=== PATIENT | male | born 1935 | race Caucasian/White ===

== ENCOUNTER 2016-07-18 17:14 | Inpatient (IN) ==
[2016-07-18] MEDS ORDERED: *HR* Morphine 2 MG/ML SYRINGE IVP ONE (17:18)
--- NOTE | 2016-07-18 17:47 | Emergency Department Note ---
Disposition Clinical Impression: Elevated troponin Fall Qualifiers: Encounter type: initial encounter Qualified Code(s): W19.XXXA - Unspecified fall, initial encounter Altered mental status Qualifiers: Altered mental status type: unspecified Qualified Code(s): R41.82 - Altered mental status, unspecified Disposition: Admitted As Inpatient Condition: Fair Referrals: James Velásquez DO [Primary Care Provider] - Forms: ED Satisfaction Letter General Adult HPI - General Chief complaint: ED Altered Mental Status Stated complaint: AMS Time Seen by Provider: 07/18/16 17:17 Source: family, EMS Limitations: altered mental status Nursing Notes Reviewed: Yes Vital Signs Reviewed: Yes - History of Present Illness HPI Narrative: Mr. Schmidt, an 80-year-old male, presents from home via EMS. Per his , he has fallen twice today. He has a history of brain cancer which has been operated on twice. It is returned and is now inoperable in no chemotherapy is being performed. He was sent home for comfort. Previously followed by the [facility], now followed by [facility], . Patient's is concerned that he may have a fracture. Patient arrives somewhat combative and uncooperative. Per his and daughters at bedside, this is not his baseline but rather an acute manager exchange the last several days. Patient currently anticoagulated on the role to and aspirin. Current pain medications include Percocet 5/325 every 6 hours, Eure 5/325 every 6 hours. PMH: Brain cancer, hypertension, hyperlipidemia, gout, dizziness. Oncologist: Dr. Montes PCP: Dr. Velásquez Patient is currently full code. Pain Scale: 6 - Related Data Allergies Allergy/AdvReac Type Severity Reaction Status Date / Time meloxicam Allergy See Verified 05/28/16 10:05 Comments Limitations: ROS unobtainable due to patients medical condition Past Medical History - Past Medical History Medical history: Reports: cancer, COPD, hypertension, pulmonary embolus Psychiatric history: Reports: no psych history - Social History Smoking Status: Never smoker Smokeless Tobacco Status: No Alcohol use: Reports: none Drug use: Reports: none Physical Exam General: Patient is in no acute distress. He initially would answer direct questions but then simply stopped speaking. He is uncooperative in that he will not do so much as even open his eyes. HEENT: No facial asymmetry. Head is normocephali. Superficial abrasion of the middle patient's forehead. PERRLA. Unable to perform extraocular motion secondary to lack of cooperation. Trachea midline. Oral mucosa dry. Cardiovascular: Heart regular rate and rhythm without clicks, rubs, gallops, or murmurs. No JVD. PMI nondisplaced. No pedal edema. Bilateral radial and posterior tibial pulses 2+. Respiratory: Symmetric chest rise with poor respiratory effort. Bilateral breath sounds are clear without crackles or rhonchi. Scant wheezing throughout. Abdomen: Bowel sounds present normoactive x-4 quadrants. Abdomen is soft, nondistended, without guarding, and nontender. Unable to assess for organomegaly as patient prefers to lie on his side instead of supine. Musculoskeletal: Unable to assess muscle strength secondary to patient cooperation however he does move all extremities. He prefers to lie in the right lateral decubitus position. No tenderness to palpation the patient's head , maxillofacial structures, C-spine, T-spine, L-spine, sacrum, clavicles, shoulder, humerus, elbow, forearms, wrists, hands, elbows, hips, greater trochanters, femur, knees, tibia or fibula, ankle, or feet. No tenderness to palpation or rocking of the patient's ribs. Neuro: Unable to properly assess cranial nerve function. Patient does squint his eyes and refuses to open them. Patient localizes in response to pain. Psych: Patient's affect is not appropriate for situation. - General Limitations: altered mental status General appearance: alert Course Course Narrative: I spoke with Dr. Gibbs regarding the patient's code status and nearing hospice care. If the patient is admitted, he will see the patient in the floor. The patient is discharged home, he recommends referral to do hospice were both CODE STATUS and hospice care can be discussed with the patient and his in a comfortable home. After full examination, patient did not elicit any tenderness headed to to palpation of any joint or bone including ribs and complete spine. Patient's expressed concern over a fracture requesting x-rays. We discussed my lack of clinical findings to guide imaging. She expressed concern over hairline fractures. I again expressed my findings on clinical exam which were joyner negative eliciting tenderness to palpation. Because the patient has an abrasion on his forehead, the was concerned about intracerebral bleed and expressed strong desire to have imaging of the patient's head. Because the patient is full code, I will perform a complete altered mentation workup. CT unremarkable for acute intracerebral hemorrhage. Chest x-ray unremarkable. CT spine unremarkable. Head CT 07/18/16 17:43 IMPRESSION: 29 mm area of ill defined low-attenuation in the inferior left frontal lobe. Considerations include nonhemorrhagic contusion, ischemia or underlying mass. Encephalomalacia in the left temporal lobe secondary to previous surgery and/or treatment. RECOMMENDATIONS: MRI is recommended for further characterization D/ / Yong Irizarry MD / Yong Irizarry MD Interpreting Provider: Yong Irizarry MD Cervical Spine CT 07/18/16 17:47 IMPRESSION: No acute abnormality of the cervical spine. Multilevel degenerative disc disease most pronounced at C4-5. D/ / Yong Irizarry MD / Yong Irizarry MD Interpreting Provider: Yong Irizrary MD Chest X-Ray 07/18/16 17:49 IMPRESSION: No acute process. D/ / Stevan Panda MD / Stevan Panda MD Interpreting Provider: Stevan Panda MD 20:11 patient's serum studies have not been drawn. Will follow-up. Patient's lab work overall is unremarkable. No evidence of UTI or leukocytosis. No Leksell abnormalities. Normal renal function. No toxicities other than urine positive for opioids which is a prescription medication. However, he does have mild elevation in troponin of 0.05. No EKG changes. We will admit the patient with a diagnosis of elevated troponin as well as frequent falls and altered mentation. Additionally, the patient's requests discussion with palliative care for hospice. I relayed all these findings the patient's and family at bedside. They have no additional questions or concerns at this time. On patient's monitor, he was alarming as being athletic. I was bedside during several of these alarms indirectly observed the patient breathing. His pulse ox dipped to 90% during this time. He does not have a history of obstructive sleep apnea. He does not require supplemental oxygen use at home. As a precaution, I placed a nasal cannula at 2 L/min. Vital Signs Temperature 97.5 F L 07/18/16 17:15 Pulse Rate 68 07/18/16 17:15 Respiratory Rate 16 07/18/16 17:15 Blood Pressure 144/90 07/18/16 17:15 O2 Sat by Pulse Oximetry 94 L 07/18/16 17:15 Temperature 97.8 F 07/18/16 20:00 Pulse Rate 60 07/18/16 21:37 Respiratory Rate 18 07/18/16 21:37 Blood Pressure 118/83 07/18/16 21:37 O2 Sat by Pulse Oximetry 96 07/18/16 21:37 Oxygen Delivery Oxygen Delivery Room Air Medical Decision Making - Medical Records Medical records reviewed: Yes I reviewed the patient's medical records. - Lab Data Lab results reviewed: Yes I reviewed the patient's lab results. Result diagrams: 07/18/16 20:44 07/18/16 20:44 Lab Results 07/18/16 07/18/16 07/18/16 Range/Units 17:24 18:52 18:55 WBC (4.3-11.1) K/mcL RBC (4.19-5.50) M/mcL Hgb (12.9-16.9) g/dL Hct (37.5-50.1) % MCV (83.0-100.0) fL MCH (28.0-33.3) pg MCHC (31.6-35.5) g/dL RDW (11.5-14.5) % Plt Count (140-400) K/mcL MPV (9.4-12.4) fL Immature Gran % (0-4) % Seg Neutrophils % % Lymphocytes % % Monocytes % % Eosinophils % % Basophils % % Neutrophils # (1.6-8.9) K/mcL Lymphocytes # (0.6-4.6) K/mcL Monocytes # (0.0-1.3) K/mcL Eosinophils # (0.0-0.6) K/mcL Basophils # (0.0-0.2) K/mcL PT (9.4-12.1) Seconds INR APTT (26.0-36.0) Seconds Sodium (136-145) mEq/L Potassium (3.5-4.5) mEq/L Chloride (98-109) mEq/L Carbon Dioxide (19-29) mEq/L BUN (8-26) mg/dL Creatinine (0.72-1.25) mg/dL Est GFR ( Amer) (> 60) Est GFR (Non-Af Amer) (> 60) BUN/Creatinine Ratio (6-26) Glucose (70-99) mg/dL POC Glucose 93 H (58-89) Calculated Osmolality (280-300) Calcium (8.6-10.8) mg/dL Total Bilirubin (0.2-1.2) mg/dL Direct Bilirubin (0.0-0.5) mg/dL Indirect Bilirubin (0.0-1.2) mg/dL AST (5-34) Units/L ALT (0-55) Units/L Alkaline Phosphatase (38-126) Units/L Troponin I (0-0.03) ng/mL Serum Total Protein (6.0-8.3) g/dL Albumin (3.5-5.0) g/dL Globulin (2.4-3.5) g/dL Albumin/Globulin Ratio (1.1-2.2) Urine Color Yellow (Yellow) Urine Clarity Cloudy A (Clear) Urine pH 7.5 (5.0-8.0) pH Units Ur Specific [place] 1.018 (1.010-1.025) Urine Protein 30 H (Neg-Trace) mg/dL Urine Glucose (UA) Normal (Normal) mg/dL Urine Ketones Negative (Negative) mg/dL Urine Blood Moderate H (Negative) Urine Nitrite Negative (Negative) Urine Bilirubin Negative (Negative) Urine Urobilinogen Normal (Normal) mg/dL Ur Leukocyte Esterase Negative (Negative) Urine Microscopic RBC 30-50 H (0-3) per hpf Urine Microscopic WBC 3-5 H (0-3) per hpf Ur Squamous Epith Cells Many H (None-Few) per lpf Ur Renal Epithelial Cell Moderate H (None-Few) per hpf Urine Bacteria None Seen (None-Few) per hpf Hyaline Casts None Seen (None-Few) per lpf Ur Culture Indicated? NO (NO) Urine Opiates Screen Positive H (Wicvev=632) ng/mL Ur Barbiturates Screen Negative (Owqyof=451) ng/mL Ur Phencyclidine Scrn Negative (Cutoff=25) ng/mL Ur Amphetamines Screen Negative (Bqusst=2311) ng/mL U Benzodiazepines Scrn Negative (Uykllr=436) ng/mL Urine Cocaine Screen Negative (Cutoff= 300) ng/mL U Marijuana (THC) Screen Negative (Cutoff = 50) ng/mL Ethyl Alcohol (0-10) mg/dL 07/18/16 07/18/16 07/18/16 Range/Units 20:44 20:44 20:44 WBC 13.8 H (4.3-11.1) K/mcL RBC 4.95 (4.19-5.50) M/mcL Hgb 15.6 (12.9-16.9) g/dL Hct 45.6 (37.5-50.1) % MCV 92.1 (83.0-100.0) fL MCH 31.5 (28.0-33.3) pg MCHC 34.2 (31.6-35.5) g/dL RDW 13.6 (11.5-14.5) % Plt Count 150 (140-400) K/mcL MPV 10.1 (9.4-12.4) fL Immature Gran % 4.5 H (0-4) % Seg Neutrophils % 84.7 % Lymphocytes % 7.2 % Monocytes % 3.0 % Eosinophils % 0.1 % Basophils % 0.5 % Neutrophils # 11.7 H (1.6-8.9) K/mcL Lymphocytes # 1.0 (0.6-4.6) K/mcL Monocytes # 0.4 (0.0-1.3) K/mcL Eosinophils # 0.0 (0.0-0.6) K/mcL Basophils # 0.1 (0.0-0.2) K/mcL PT 14.6 H (9.4-12.1) Seconds INR 1.3 APTT 33.8 (26.0-36.0) Seconds Sodium 133 L (136-145) mEq/L Potassium 5.1 H (3.5-4.5) mEq/L Chloride 101 (98-109) mEq/L Carbon Dioxide 22 (19-29) mEq/L BUN 25 (8-26) mg/dL Creatinine 0.82 (0.72-1.25) mg/dL Est GFR ( Amer) > 60 (> 60) Est GFR (Non-Af Amer) > 60 (> 60) BUN/Creatinine Ratio 30 H (6-26) Glucose 97 (70-99) mg/dL POC Glucose (58-89) Calculated Osmolality 280 (280-300) Calcium 8.5 L (8.6-10.8) mg/dL Total Bilirubin (0.2-1.2) mg/dL Direct Bilirubin (0.0-0.5) mg/dL Indirect Bilirubin (0.0-1.2) mg/dL AST (5-34) Units/L ALT (0-55) Units/L Alkaline Phosphatase (38-126) Units/L Troponin I (0-0.03) ng/mL Serum Total Protein (6.0-8.3) g/dL Albumin (3.5-5.0) g/dL Globulin (2.4-3.5) g/dL Albumin/Globulin Ratio (1.1-2.2) Urine Color (Yellow) Urine Clarity (Clear) Urine pH (5.0-8.0) pH Units Ur Specific [place] (1.010-1.025) Urine Protein (Neg-Trace) mg/dL Urine Glucose (UA) (Normal) mg/dL Urine Ketones (Negative) mg/dL Urine Blood (Negative) Urine Nitrite (Negative) Urine Bilirubin (Negative) Urine Urobilinogen (Normal) mg/dL Ur Leukocyte Esterase (Negative) Urine Microscopic RBC (0-3) per hpf Urine Microscopic WBC (0-3) per hpf Ur Squamous Epith Cells (None-Few) per lpf Ur Renal Epithelial Cell (None-Few) per hpf Urine Bacteria (None-Few) per hpf Hyaline Casts (None-Few) per lpf Ur Culture Indicated? (NO) Urine Opiates Screen (Lccdqo=570) ng/mL Ur Barbiturates Screen (Binocf=305) ng/mL Ur Phencyclidine Scrn (Cutoff=25) ng/mL Ur Amphetamines Screen (Yydftq=4469) ng/mL U Benzodiazepines Scrn (Lcydsl=522) ng/mL Urine Cocaine Screen (Cutoff= 300) ng/mL U Marijuana (THC) Screen (Cutoff = 50) ng/mL Ethyl Alcohol (0-10) mg/dL 07/18/16 07/18/16 Range/Units 20:44 20:44 WBC (4.3-11.1) K/mcL RBC (4.19-5.50) M/mcL Hgb (12.9-16.9) g/dL Hct (37.5-50.1) % MCV (83.0-100.0) fL MCH (28.0-33.3) pg MCHC (31.6-35.5) g/dL RDW (11.5-14.5) % Plt Count (140-400) K/mcL MPV (9.4-12.4) fL Immature Gran % (0-4) % Seg Neutrophils % % Lymphocytes % % Monocytes % % Eosinophils % % Basophils % % Neutrophils # (1.6-8.9) K/mcL Lymphocytes # (0.6-4.6) K/mcL Monocytes # (0.0-1.3) K/mcL Eosinophils # (0.0-0.6) K/mcL Basophils # (0.0-0.2) K/mcL PT (9.4-12.1) Seconds INR APTT (26.0-36.0) Seconds Sodium (136-145) mEq/L Potassium (3.5-4.5) mEq/L Chloride (98-109) mEq/L Carbon Dioxide (19-29) mEq/L BUN (8-26) mg/dL Creatinine (0.72-1.25) mg/dL Est GFR ( Amer) (> 60) Est GFR (Non-Af Amer) (> 60) BUN/Creatinine Ratio (6-26) Glucose (70-99) mg/dL POC Glucose (58-89) Calculated Osmolality (280-300) Calcium (8.6-10.8) mg/dL Total Bilirubin 1.7 H (0.2-1.2) mg/dL Direct Bilirubin 0.5 (0.0-0.5) mg/dL Indirect Bilirubin 1.2 (0.0-1.2) mg/dL AST 26 (5-34) Units/L ALT 31 (0-55) Units/L Alkaline Phosphatase 57 (38-126) Units/L Troponin I 0.05 H* (0-0.03) ng/mL Serum Total Protein 6.2 (6.0-8.3) g/dL Albumin 3.1 L (3.5-5.0) g/dL Globulin 3.1 (2.4-3.5) g/dL Albumin/Globulin Ratio 1.0 L (1.1-2.2) Urine Color (Yellow) Urine Clarity (Clear) Urine pH (5.0-8.0) pH Units Ur Specific [place] (1.010-1.025) Urine Protein (Neg-Trace) mg/dL Urine Glucose (UA) (Normal) mg/dL Urine Ketones (Negative) mg/dL Urine Blood (Negative) Urine Nitrite (Negative) Urine Bilirubin (Negative) Urine Urobilinogen (Normal) mg/dL Ur Leukocyte Esterase (Negative) Urine Microscopic RBC (0-3) per hpf Urine Microscopic WBC (0-3) per hpf Ur Squamous Epith Cells (None-Few) per lpf Ur Renal Epithelial Cell (None-Few) per hpf Urine Bacteria (None-Few) per hpf Hyaline Casts (None-Few) per lpf Ur Culture Indicated? (NO) Urine Opiates Screen (Jewbgx=885) ng/mL Ur Barbiturates Screen (Yrsyco=188) ng/mL Ur Phencyclidine Scrn (Cutoff=25) ng/mL Ur Amphetamines Screen (Nythum=0238) ng/mL U Benzodiazepines Scrn (Nxppdo=880) ng/mL Urine Cocaine Screen (Cutoff= 300) ng/mL U Marijuana (THC) Screen (Cutoff = 50) ng/mL Ethyl Alcohol < 10 (0-10) mg/dL - Radiology Data Radiology results reviewed: Yes I reviewed the patient's radiology results. - EKG Data EKG #1 EKG attestation: Yes I reviewed and interpreted this EKG. EKG results narrative: EKG dated July at 19:32) sinus bradycardia with a rate of 59. Normal intervals with OH 177, QRS 95, QT/QTc 453/452. Normal axis. Nonspecific ST-T changes. Compared to previous dated 06/29 also read as sinus bradycardia; no acute ischemic changes of comparison.
[2016-07-18] MEDS ORDERED: *HR* LORazepam 2 MG/ML VIAL IVP ONE (18:17)
[2016-07-18 19:01] LABS: Bilirubin,Urine Negative (Negative); Blood,Urine Moderate (Negative); Clarity,Urine Cloudy (Clear); Color,Urine Yellow (Yellow); Glucose,Urine (UA) Normal (Normal); Ketones,Urine Negative (Negative); Leukocyte Esterase,Urine Negative (Negative); Nitrite,Urine Negative (Negative); PH,Urine 7.5 pH Units (5.0-8.0); Protein,Urine 30 mg/dL (Neg-Trace); Specific Gravity,Urine 1.018 (1.010-1.025); Urobilinogen,Urine Normal (Normal)
[2016-07-18 19:02] LABS: Bacteria,Urine None Seen per hpf (None-Few); Hyaline Casts,Urine None Seen per lpf (None-Few); RBC,Urine 30-50 per hpf (0-3); Squamous Epithelial Cell,Urine Many per lpf (None-Few)
[2016-07-18 19:05] LABS: Amphetamine Screen,Urine Negative ng/mL (Cutoff=1000); Barbiturate Screen,Urine Negative ng/mL (Cutoff=200); Benzodiazepines Screen,Urine Negative ng/mL (Cutoff=200); Cannabinoid Screen,Urine Negative ng/mL (Cutoff = 50); Cocaine Screen,Urine Negative ng/mL (Cutoff= 300); Opiate Screen,Urine Positive ng/mL (Cutoff=300); Phencyclidine Screen,Urine Negative ng/mL (Cutoff=25)
[2016-07-18 19:14] LABS: Renal Epithelial Cells,Urine Moderate per hpf (None-Few)
[2016-07-18 20:51] LABS: Basophils # 0.1 K/mcL (0.0-0.2); Basophils % 0.5 %; Eosinophils % 0.1 %; Hematocrit 45.6 % (37.5-50.1); Hemoglobin 15.6 g/dL (12.9-16.9); Immature Granulocytes % 4.5 % (0-4); Lymphocytes % 7.2 %; Mean Corpuscular HGB Conc 34.2 g/dL (31.6-35.5); Mean Corpuscular Hemoglobin 31.5 pg (28.0-33.3); Mean Corpuscular Volume 92.1 fL (83.0-100.0); Mean Platelet Volume 10.1 fL (9.4-12.4); Monocytes # 0.4 K/mcL (0.0-1.3); Neutrophils # 11.7 K/mcL (1.6-8.9); Platelet Count 150 K/mcL (140-400); Red Blood Count 4.95 M/mcL (4.19-5.50); Red Cell Distribution Width 13.6 % (11.5-14.5); Segmented Neutrophils % 84.7 %
[2016-07-18 20:55] LABS: INR 1.3; Prothrombin Time 14.6 Seconds (9.4-12.1)
[2016-07-18 20:58] LABS: Activated Partial Thrombo Time 33.8 Seconds (26.0-36.0)
[2016-07-18 21:05] LABS: BUN/Creatinine Ratio 30 (6-26); Blood Urea Nitrogen 25 mg/dL (8-26); Calcium 8.5 mg/dL (8.6-10.8); Carbon Dioxide 22 mEq/L (19-29); Chloride 101 mEq/L (98-109); Glucose 97 mg/dL (70-99); Osmolality,Calculated 280 (280-300); Potassium 5.1 mEq/L (3.5-4.5); Sodium 133 mEq/L (136-145); eGFR For African Americans > 60 (> 60); eGFR For Non-African Americans > 60 (> 60)
[2016-07-18 21:06] LABS: Alanine Aminotransferase 31 Units/L (0-55); Albumin 3.1 g/dL (3.5-5.0); Alkaline Phosphatase 57 Units/L (38-126); Aspartate Amino Transferase 26 Units/L (5-34); Bilirubin,Direct 0.5 mg/dL (0.0-0.5); Bilirubin,Indirect 1.2 mg/dL (0.0-1.2); Bilirubin,Total 1.7 mg/dL (0.2-1.2); Globulin 3.1 g/dL (2.4-3.5); Total Protein 6.2 g/dL (6.0-8.3)
[2016-07-18 21:07] LABS: Ethanol < 10 mg/dL (0-10)
--- NOTE | 2016-07-18 21:57 | Emergency Department Note ---
Disposition Clinical Impression: Elevated troponin, Fall, Altered mental status Disposition: Admitted As Inpatient Condition: Fair Referrals: James Velásquez DO [Primary Care Provider] - Forms: ED Satisfaction Letter General Adult HPI - General Chief complaint: ED Altered Mental Status Stated complaint: AMS Time Seen by Provider: 07/18/16 17:17 Source: family, EMS Limitations: altered mental status - History of Present Illness Pain Scale: 6 - Related Data Home Medications Medication Instructions Recorded Confirmed Allopurinol [Zyloprim 100 MG] 100 mg PO BID 07/18/16 07/18/16 Amlodipine [Norvasc] 2.5 mg PO DAILY 07/18/16 07/18/16 Ascorbate Calcium [Vitamin C] 500 mg PO DAILY 07/18/16 07/18/16 Aspirin [Lo-Dose Aspirin EC] 81 mg PO DAILY 07/18/16 07/18/16 Calcium Carbonate/Vitamin D3 1 each PO DAILY 07/18/16 07/18/16 [Calcium 600-Vit D3 200 Tablet] Isosorbide MONOnitrate (24 HR) 60 mg PO DAILY 07/18/16 07/18/16 [Imdur] Lisinopril [Zestril] 10 mg PO DAILY 07/18/16 07/18/16 Meclizine HCl [Bonine] 25 mg PO PRN PRN 07/18/16 07/18/16 Metoprolol XL (24 HR) Succ [Toprol 25 mg PO DAILY 07/18/16 07/18/16 XL] Nitroglycerin [Nitrostat] 0.4 mg SL PRN PRN 07/18/16 07/18/16 OxyCODONE/APAP 5/325 [Percocet 1 each PO Q6HR PRN 07/18/16 07/18/16 5/325 MG] Ranolazine [Ranexa] 1,000 mg PO DAILY 07/18/16 07/18/16 Simvastatin [Zocor] 20 mg PO HS 07/18/16 07/18/16 Xarelto 07/18/16 Allergies Allergy/AdvReac Type Severity Reaction Status Date / Time meloxicam Allergy See Verified 05/28/16 10:05 Comments Past Medical History - Past Medical History Medical history: Reports: cancer, COPD, hypertension, pulmonary embolus Psychiatric history: Reports: no psych history - Social History Smoking Status: Never smoker Smokeless Tobacco Status: No Alcohol use: Reports: none Drug use: Reports: none Physical Exam - General Limitations: altered mental status General appearance: alert Course - Reevaluation(s) Reevaluation #1: I saw the patient with the resident, Dr. Sotelo. Patient was brought in with falls at home and altered mental status. He is a brain cancer patients and is currently not getting any treatment yet the family wants him to be full code. Evaluation is limited by the patient's altered mental status. CAT scan of the brain showed the old brain lesions but no acute bleeds. Lab abnormalities revealed an elevated troponin. The main reason this patient really needs to be admitted to the hospital is that it does not seem like families capable of caring for him at home. We need to admit the patient so that he can be evaluated for group home placement or hospice care in conjunction with the family. Patient was accepted for admission by the hospitalist. Time: 21:56 Vital Signs Temperature 97.5 F L 07/18/16 17:15 Pulse Rate 68 07/18/16 17:15 Respiratory Rate 16 07/18/16 17:15 Blood Pressure 144/90 07/18/16 17:15 O2 Sat by Pulse Oximetry 94 L 07/18/16 17:15 Temperature 97.8 F 07/18/16 20:00 Pulse Rate 60 07/18/16 21:37 Respiratory Rate 18 07/18/16 21:37 Blood Pressure 118/83 07/18/16 21:37 O2 Sat by Pulse Oximetry 96 07/18/16 21:37 Oxygen Delivery Oxygen Delivery Room Air Medical Decision Making - Lab Data Result diagrams: 07/18/16 20:44 07/18/16 20:44 Lab Results 07/18/16 07/18/16 07/18/16 Range/Units 17:24 18:52 18:55 WBC (4.3-11.1) K/mcL RBC (4.19-5.50) M/mcL Hgb (12.9-16.9) g/dL Hct (37.5-50.1) % MCV (83.0-100.0) fL MCH (28.0-33.3) pg MCHC (31.6-35.5) g/dL RDW (11.5-14.5) % Plt Count (140-400) K/mcL MPV (9.4-12.4) fL Immature Gran % (0-4) % Seg Neutrophils % % Lymphocytes % % Monocytes % % Eosinophils % % Basophils % % Neutrophils # (1.6-8.9) K/mcL Lymphocytes # (0.6-4.6) K/mcL Monocytes # (0.0-1.3) K/mcL Eosinophils # (0.0-0.6) K/mcL Basophils # (0.0-0.2) K/mcL PT (9.4-12.1) Seconds INR APTT (26.0-36.0) Seconds Sodium (136-145) mEq/L Potassium (3.5-4.5) mEq/L Chloride (98-109) mEq/L Carbon Dioxide (19-29) mEq/L BUN (8-26) mg/dL Creatinine (0.72-1.25) mg/dL Est GFR ( Amer) (> 60) Est GFR (Non-Af Amer) (> 60) BUN/Creatinine Ratio (6-26) Glucose (70-99) mg/dL POC Glucose 93 H (58-89) Calculated Osmolality (280-300) Calcium (8.6-10.8) mg/dL Total Bilirubin (0.2-1.2) mg/dL Direct Bilirubin (0.0-0.5) mg/dL Indirect Bilirubin (0.0-1.2) mg/dL AST (5-34) Units/L ALT (0-55) Units/L Alkaline Phosphatase (38-126) Units/L Troponin I (0-0.03) ng/mL Serum Total Protein (6.0-8.3) g/dL Albumin (3.5-5.0) g/dL Globulin (2.4-3.5) g/dL Albumin/Globulin Ratio (1.1-2.2) Urine Color Yellow (Yellow) Urine Clarity Cloudy A (Clear) Urine pH 7.5 (5.0-8.0) pH Units Ur Specific [place] 1.018 (1.010-1.025) Urine Protein 30 H (Neg-Trace) mg/dL Urine Glucose (UA) Normal (Normal) mg/dL Urine Ketones Negative (Negative) mg/dL Urine Blood Moderate H (Negative) Urine Nitrite Negative (Negative) Urine Bilirubin Negative (Negative) Urine Urobilinogen Normal (Normal) mg/dL Ur Leukocyte Esterase Negative (Negative) Urine Microscopic RBC 30-50 H (0-3) per hpf Urine Microscopic WBC 3-5 H (0-3) per hpf Ur Squamous Epith Cells Many H (None-Few) per lpf Ur Renal Epithelial Cell Moderate H (None-Few) per hpf Urine Bacteria None Seen (None-Few) per hpf Hyaline Casts None Seen (None-Few) per lpf Ur Culture Indicated? NO (NO) Urine Opiates Screen Positive H (Ghboin=793) ng/mL Ur Barbiturates Screen Negative (Jjljbg=074) ng/mL Ur Phencyclidine Scrn Negative (Cutoff=25) ng/mL Ur Amphetamines Screen Negative (Ontcnv=4510) ng/mL U Benzodiazepines Scrn Negative (Zrdpzz=659) ng/mL Urine Cocaine Screen Negative (Cutoff= 300) ng/mL U Marijuana (THC) Screen Negative (Cutoff = 50) ng/mL Ethyl Alcohol (0-10) mg/dL 07/18/16 07/18/16 07/18/16 Range/Units 20:44 20:44 20:44 WBC 13.8 H (4.3-11.1) K/mcL RBC 4.95 (4.19-5.50) M/mcL Hgb 15.6 (12.9-16.9) g/dL Hct 45.6 (37.5-50.1) % MCV 92.1 (83.0-100.0) fL MCH 31.5 (28.0-33.3) pg MCHC 34.2 (31.6-35.5) g/dL RDW 13.6 (11.5-14.5) % Plt Count 150 (140-400) K/mcL MPV 10.1 (9.4-12.4) fL Immature Gran % 4.5 H (0-4) % Seg Neutrophils % 84.7 % Lymphocytes % 7.2 % Monocytes % 3.0 % Eosinophils % 0.1 % Basophils % 0.5 % Neutrophils # 11.7 H (1.6-8.9) K/mcL Lymphocytes # 1.0 (0.6-4.6) K/mcL Monocytes # 0.4 (0.0-1.3) K/mcL Eosinophils # 0.0 (0.0-0.6) K/mcL Basophils # 0.1 (0.0-0.2) K/mcL PT 14.6 H (9.4-12.1) Seconds INR 1.3 APTT 33.8 (26.0-36.0) Seconds Sodium 133 L (136-145) mEq/L Potassium 5.1 H (3.5-4.5) mEq/L Chloride 101 (98-109) mEq/L Carbon Dioxide 22 (19-29) mEq/L BUN 25 (8-26) mg/dL Creatinine 0.82 (0.72-1.25) mg/dL Est GFR ( Amer) > 60 (> 60) Est GFR (Non-Af Amer) > 60 (> 60) BUN/Creatinine Ratio 30 H (6-26) Glucose 97 (70-99) mg/dL POC Glucose (58-89) Calculated Osmolality 280 (280-300) Calcium 8.5 L (8.6-10.8) mg/dL Total Bilirubin (0.2-1.2) mg/dL Direct Bilirubin (0.0-0.5) mg/dL Indirect Bilirubin (0.0-1.2) mg/dL AST (5-34) Units/L ALT (0-55) Units/L Alkaline Phosphatase (38-126) Units/L Troponin I (0-0.03) ng/mL Serum Total Protein (6.0-8.3) g/dL Albumin (3.5-5.0) g/dL Globulin (2.4-3.5) g/dL Albumin/Globulin Ratio (1.1-2.2) Urine Color (Yellow) Urine Clarity (Clear) Urine pH (5.0-8.0) pH Units Ur Specific [place] (1.010-1.025) Urine Protein (Neg-Trace) mg/dL Urine Glucose (UA) (Normal) mg/dL Urine Ketones (Negative) mg/dL Urine Blood (Negative) Urine Nitrite (Negative) Urine Bilirubin (Negative) Urine Urobilinogen (Normal) mg/dL Ur Leukocyte Esterase (Negative) Urine Microscopic RBC (0-3) per hpf Urine Microscopic WBC (0-3) per hpf Ur Squamous Epith Cells (None-Few) per lpf Ur Renal Epithelial Cell (None-Few) per hpf Urine Bacteria (None-Few) per hpf Hyaline Casts (None-Few) per lpf Ur Culture Indicated? (NO) Urine Opiates Screen (Bdvgai=240) ng/mL Ur Barbiturates Screen (Htbkri=569) ng/mL Ur Phencyclidine Scrn (Cutoff=25) ng/mL Ur Amphetamines Screen (Qhqqig=0604) ng/mL U Benzodiazepines Scrn (Whlcki=055) ng/mL Urine Cocaine Screen (Cutoff= 300) ng/mL U Marijuana (THC) Screen (Cutoff = 50) ng/mL Ethyl Alcohol (0-10) mg/dL 07/18/16 07/18/16 Range/Units 20:44 20:44 WBC (4.3-11.1) K/mcL RBC (4.19-5.50) M/mcL Hgb (12.9-16.9) g/dL Hct (37.5-50.1) % MCV (83.0-100.0) fL MCH (28.0-33.3) pg MCHC (31.6-35.5) g/dL RDW (11.5-14.5) % Plt Count (140-400) K/mcL MPV (9.4-12.4) fL Immature Gran % (0-4) % Seg Neutrophils % % Lymphocytes % % Monocytes % % Eosinophils % % Basophils % % Neutrophils # (1.6-8.9) K/mcL Lymphocytes # (0.6-4.6) K/mcL Monocytes # (0.0-1.3) K/mcL Eosinophils # (0.0-0.6) K/mcL Basophils # (0.0-0.2) K/mcL PT (9.4-12.1) Seconds INR APTT (26.0-36.0) Seconds Sodium (136-145) mEq/L Potassium (3.5-4.5) mEq/L Chloride (98-109) mEq/L Carbon Dioxide (19-29) mEq/L BUN (8-26) mg/dL Creatinine (0.72-1.25) mg/dL Est GFR ( Amer) (> 60) Est GFR (Non-Af Amer) (> 60) BUN/Creatinine Ratio (6-26) Glucose (70-99) mg/dL POC Glucose (58-89) Calculated Osmolality (280-300) Calcium (8.6-10.8) mg/dL Total Bilirubin 1.7 H (0.2-1.2) mg/dL Direct Bilirubin 0.5 (0.0-0.5) mg/dL Indirect Bilirubin 1.2 (0.0-1.2) mg/dL AST 26 (5-34) Units/L ALT 31 (0-55) Units/L Alkaline Phosphatase 57 (38-126) Units/L Troponin I 0.05 H* (0-0.03) ng/mL Serum Total Protein 6.2 (6.0-8.3) g/dL Albumin 3.1 L (3.5-5.0) g/dL Globulin 3.1 (2.4-3.5) g/dL Albumin/Globulin Ratio 1.0 L (1.1-2.2) Urine Color (Yellow) Urine Clarity (Clear) Urine pH (5.0-8.0) pH Units Ur Specific [place] (1.010-1.025) Urine Protein (Neg-Trace) mg/dL Urine Glucose (UA) (Normal) mg/dL Urine Ketones (Negative) mg/dL Urine Blood (Negative) Urine Nitrite (Negative) Urine Bilirubin (Negative) Urine Urobilinogen (Normal) mg/dL Ur Leukocyte Esterase (Negative) Urine Microscopic RBC (0-3) per hpf Urine Microscopic WBC (0-3) per hpf Ur Squamous Epith Cells (None-Few) per lpf Ur Renal Epithelial Cell (None-Few) per hpf Urine Bacteria (None-Few) per hpf Hyaline Casts (None-Few) per lpf Ur Culture Indicated? (NO) Urine Opiates Screen (Rqsslc=980) ng/mL Ur Barbiturates Screen (Ofwqmo=504) ng/mL Ur Phencyclidine Scrn (Cutoff=25) ng/mL Ur Amphetamines Screen (Saytoe=7211) ng/mL U Benzodiazepines Scrn (Jsthmw=337) ng/mL Urine Cocaine Screen (Cutoff= 300) ng/mL U Marijuana (THC) Screen (Cutoff = 50) ng/mL Ethyl Alcohol < 10 (0-10) mg/dL Attestation Statement - Attestation Attestation: I, Dr. Newman, examined this patient [id number] and my medical decision- making was reviewed with Dr. Sotelo, Resident Physician. I agree with the documented findings, disposition and treatment plan as described except to the extent set forth below. The see my progress notes for details.
--- NOTE | 2016-07-18 23:15 | Internal Med History&Physical ---
<George Casarez - Last Filed: 07/19/16 00:17> Date of Encounter: 07/18/16 Time of Encounter: 23:10 Assessment and Plan (1) Altered mental status Current visit: Yes Status: Acute Likely due to mass effect secondary to GBM, but cannot rule out metabolic vs. infectious at this time Will obtain blood cultures, but no acute indication for antibiotics at this time as there is no obvious source of infection Workup metabolic cause with B12 and TSH; will get neurology consult for further evaluation Consult palliative care as family is considering transitioning patient to hospice Request sitter at bedside as patient has been recently confused and getting up/ falling Qualifiers: Altered mental status type: unspecified Qualified Code(s): R41.82 - Altered mental status, unspecified (2) Counseling regarding goals of care Current visit: Yes Status: Acute Spoke to family at length regarding what patient would desire, and repeatedly stated that he "wanted to go" when it was his time I also talked to his sons who eventually agreed that no heroic measures be done if he were to arrest Will make DNR-CCA/DNI for now, but he may be considered for hospice once palliative speaks to patient's family (3) Elevated troponin Current visit: Yes Status: Acute Likely secondary to demand ischemia; patient unable to vocalize any chest pain Will trend troponin x2, initial levels were 0.05 Keep patient on cardiac monitor technician (4) Leukocytosis Current visit: Yes Status: Acute Unclear etiology as there is no obvious source of infection; he does not meet any other SIRS criteria Will obtain blood culture but no indication for antibiotics at this time as above Qualifiers: Qualified Code(s): D72.829 - Elevated white blood cell count, unspecified (5) COPD (chronic obstructive pulmonary disease) Current visit: Yes Status: Chronic He appears to be breathing comfortably while at rest Continue 2 L oxygen for now, no wheezing or rales on exam so no need for breathing treatments or steroids at this time Qualifiers: Qualified Code(s): J44.9 - Chronic obstructive pulmonary disease, unspecified (6) DVT prophylaxis Current visit: Yes Status: Acute SCDs in setting of recent falls; [facility] - H&P: HPI Chief complaint: Altered mental status Admitted From: Home Plans for Post Hospital Care: Home History of present illness: Mr. Schmidt is a 80 year old male who presents emergency department for altered mental status and falling twice at home earlier today. Patient has a history of inoperable brain cancer and is unable to provide history. There is family at bedside including patient's who lives with the patient, and sons who are able to assist with history. states that earlier today, patient was going to the bathroom and had fallen. She states that he was on the ground for no longer than 10 minutes. She admits to patient falling once while outside but this is the first time he's fallen at home. also states that over the past couple days, patient has been increasingly more confused. She claims that normally at baseline, patient is alert and oriented. 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 He is currently being managed by Dr. Natarajan and his chemotherapy has been discontinued. He is currently on Xarelto and has been on/off anticoagulation since 1978 when he was diagnosed with PE. At this time, family is considering transition to hospice care and would like patient to be comfortable and nothing aggressive be done during this admission. Past Med Surg Social Fam HX - Past Medical History Medical history: cancer, COPD, hypertension, pulmonary embolus Psychiatric history: no psych history - Social History Smoking Status: Never smoker Smokeless Tobacco Status: No Alcohol use: none Drug use: none - Family History Mother Adopted: No Family Member Ethnicity: Living Status: Cause of : aneurysm Hx Family Cardiac Disorders: Yes (son) Hx Family Respiratory Disorders: No Hx Family Cancer: Yes (sister, aunt, uncle) Hx Family GI Disorders: No Hx Family Genitourinary Disorders: No Hx Family Endocrine Disorder: No Hx Family Musculoskeletal Disorders: No Hx Family Neuromuscular Disorders: No Hx Family Neurologic Disorders: No Hx Family HEENT Disorders: No Hx Family Autoimmune Disorders: No Hx Family Reproductive Disorders: No Hx Family Psychosocial Disorders: No Hx Family Medical Disorders: No Internal Medicine - H&P: Meds Allopurinol [Zyloprim 100 MG] 100 mg PO BID 07/18/16 [History] Amlodipine [Norvasc] 2.5 mg PO DAILY 07/18/16 [History] Ascorbate Calcium [Vitamin C] 500 mg PO DAILY 07/18/16 [History] Aspirin [Lo-Dose Aspirin EC] 81 mg PO DAILY 07/18/16 [History] Calcium Carbonate/Vitamin D3 [Calcium 600-Vit D3 200 Tablet] 1 each PO DAILY 12/27 [History] Isosorbide MONOnitrate (24 HR) [Imdur] 60 mg PO DAILY 07/18/16 [History] Lisinopril [Zestril] 10 mg PO DAILY 07/18/16 [History] Meclizine HCl [Bonine] 25 mg PO PRN PRN 07/18/16 [History] Metoprolol XL (24 HR) Succ [Toprol XL] 25 mg PO DAILY 07/18/16 [History] Nitroglycerin [Nitrostat] 0.4 mg SL PRN PRN 07/18/16 [History] OxyCODONE/APAP 5/325 [Percocet 5/325 MG] 1 each PO Q6HR PRN 07/18/16 [History] Ranolazine [Ranexa] 1,000 mg PO DAILY 07/18/16 [History] Simvastatin [Zocor] 20 mg PO HS 07/18/16 [History] Xarelto 07/18/16 [History] Allergies meloxicam Allergy (Verified 05/28/16 10:05) See Comments patient unsure of reaction ROS unobtainable: due to mental status All Systems PM: A 10-system review of systems was performed and is negative for pertinent findings except as documented above in the HPI. - Constitutional Vitals: Temp Pulse Resp BP Pulse Ox 97.4 F L 55 16 144/73 95 07/18/16 22:55 07/18/16 22:55 07/18/16 22:55 07/18/16 22:55 07/18/16 22:55 General appearance: Present: A&O X 0, disheveled. Absent: answers questions appropriately Exam: He appears lethargic and does not cooperative during exam. He does speak one word responses at times when asked question. - Head Additional comments: abrasion noted in forehead - Eye Additional comments: does not open eyes to verbal stimuli - Neck Neck exam general surgery: Present: supple, trachea midline. Absent: lymphadenopathy - Respiratory Respiratory exam: Present: CTAB (poor inspiratory effort). Absent: accessory muscle use, rales, rhonchi, wheezes - Cardiovascular Cardiovascular exam: Present: RRR, +S1, +S2. Absent: diastolic murmur, gallop, rubs, systolic murmur - GI/Abdominal GI/Abdominal exam: Present: normal bowel sounds, soft, no peritoneal signs. Absent: distended, tenderness - Extremities Exam Extremities exam: Present: warm, radial pulses palpable and symetrical. Absent : calf tenderness, cyanotic, pedal edema - Neurological Exam Neurological exam: Present: altered, no focal deficits. Absent: oriented X3, strengths equal and symetr throughout Additional comments: unable to fully assess due to mental status - Skin Skin exam: Present: dry, intact Internal Med - H&P Results - Labs CBC & Chem 7: 07/18/16 20:44 07/18/16 20:44 <Beverly Meyer - Last Filed: 07/19/16 06:28> Internal Medicine - H&P: HPI History of present illness: Mr. Schmidt is a 80 year old male All Systems PM: A 10-system review of systems was performed and is negative for pertinent findings except as documented above in the HPI. - Constitutional Vitals: Temp Pulse Resp BP Pulse Ox 97.4 F L 55 16 144/73 95 07/18/16 22:55 07/18/16 22:55 07/18/16 22:55 07/18/16 22:55 07/18/16 22:55 Internal Med - H&P Results - Labs CBC & Chem 7: 07/19/16 01:17 07/19/16 01:17 - EKG Data -: EKG Interpreted by Myself EKG shows normal: sinus rhythm - Attending Attestation I performed a history and physical examination of the patient and discussed his management with the Resident/Workforce Consultant (Dr Casarez). I reviewed the residents note and agree with the documented findings and plan of care, with additions as below. 80 year old male with history of inoperable brain tumor (glioblastoma multiforme ), was brought to the ER after 2 falls at home and combative behavior. At home his was not able to care for him and is considering palliative care. In the ER, he was noted to have troponin of 0.05 and is admitted to the hospitalist service for further management. O/E: agitated. EKG personally reviewed and shows sinus rhythm with no acute ST-T changes. Elevated troponin: pt does not report chest pain. Will trend troponins; cardiac monitoring. Will consider cardiology consult if there is further elevation of troponin or EKG changes. Change in behavior: CT head report reviewed. Will consider MRI of the brain; Neurology consult. ?steroids would help, if there is cerebral edema. Falls: possibly related to brain tumor. Will check orthostatics; PT eval. Leucocytosis: UA and CXR are negative. Will get blood cultures. Mild hyperkalemia: Likely due to Lisinopril. Hold Lisinopril. Recheck potassium level and consider kayexalate, if worsening
[2016-07-18] MEDS ORDERED: 0.9 % Sodium Chloride 1,000 ML IVC SCH (23:30)
[2016-07-18] MEDS ORDERED: Naloxone 0.4 MG/ML INJ IVP PRN (23:30)
[2016-07-18] MEDS ORDERED: Ondansetron 4 MG/2 ML VIAL IVP PRN (23:30)
[2016-07-19] MEDS ORDERED: *HR* LORazepam 2 MG/ML VIAL IVP PRN (00:11)
[2016-07-19] MEDS ORDERED: Nitroglycerin 0.4 MG TAB.SUBL SL PRN (00:12)
[2016-07-19] MEDS ORDERED: *HR* Morphine 2 MG/ML SYRINGE IVP PRN (00:16)
[2016-07-19 03:38] LABS: Basophils # 0.1 K/mcL (0.0-0.2); Basophils % 0.4 %; Eosinophils % 0.1 %; Hematocrit 43.1 % (37.5-50.1); Hemoglobin 14.7 g/dL (12.9-16.9); Immature Granulocytes % 2.8 % (0-4); Lymphocytes % 6.7 %; Mean Corpuscular HGB Conc 34.1 g/dL (31.6-35.5); Mean Corpuscular Hemoglobin 32.3 pg (28.0-33.3); Mean Corpuscular Volume 94.7 fL (83.0-100.0); Mean Platelet Volume 10.7 fL (9.4-12.4); Monocytes # 0.7 K/mcL (0.0-1.3); Monocytes % 4.7 %; Neutrophils # 12.7 K/mcL (1.6-8.9); Platelet Count 154 K/mcL (140-400); Red Blood Count 4.55 M/mcL (4.19-5.50); Red Cell Distribution Width 13.8 % (11.5-14.5); Segmented Neutrophils % 85.3 %
[2016-07-19 03:51] LABS: BUN/Creatinine Ratio 35 (6-26); Blood Urea Nitrogen 26 mg/dL (8-26); Calcium 8.3 mg/dL (8.6-10.8); Carbon Dioxide 18 mEq/L (19-29); Chloride 103 mEq/L (98-109); Glucose 69 mg/dL (70-99); Osmolality,Calculated 279 (280-300); Potassium 4.9 mEq/L (3.5-4.5); Sodium 133 mEq/L (136-145); eGFR For African Americans > 60 (> 60); eGFR For Non-African Americans > 60 (> 60)
--- NOTE | 2016-07-19 09:05 | Electrocardiograph Report ---
[place] [id number] Test Date: 2016-07-18 Pat Name: Raymundo Schmidt Department: 104 Room: 2A13 Gender: M [employer]inter: : [id number] Requested By: Jerrod Sotelo Order Number: [id number] Reading MD: Ricky Sherman MD Measurements Intervals [place] Rate: 59 P: 40 ME: 177 QRS: 7 QRSD: 95 T: 72 QT: 453 QTc: 452 Interpretive Statements SINUS BRADYCARDIA WITH SINUS ARRHYTHMIA Electronically Signed On 07-19-2016 9:03:51 EST by Ricky Sherman MD
--- NOTE | 2016-07-19 09:42 | Neurology - Consult Note ---
Date of Encounter: 07/19/16 Time of Encounter: 09:39 Assessment and Plan (1) Altered mental status Current Visit: Yes Status: Acute Patient's altered mental status appears to be associated with his glioblastoma. Family is very aware that the patient's alteration in mentation that is intermittent in nature we will continue to progress given the nature of the tumor. The patient's family appears to be worried with the patient altered mentation due to lack of sleep by the patient over the past few days. Given the patient slept well overnight according to the son, the patient is acting more like himself this morning. The patient's family are discussing goals of care at this time with questionable involvement of hospice. The patient's family states that they would not like to have any further testing including MRI , EEG at this time. We will continue to follow up with the patient as needed. Qualifiers: Altered mental status type: unspecified Qualified Code(s): R41.82 - Altered mental status, unspecified (2) Hypersomnolence Current Visit: No Status: Acute (3) Glioblastoma Current Visit: No Status: Chronic History of Present Illness Chief complaint: Altered mental status, fall HPI: Mr. Schmidt is a 80 year old male with history of glioblastoma diagnosed and treated at [facility]. The patient has received numerous brain surgeries for removal of the tumor which has continued to grow, as well as received radiation and chemotherapy by Dr. Natarajan. His chemotherapy was recently discontinued with knowledge that the patient would be terminal from his tumor. The family member state that the patient has had a couple falls over the past few days and states that yesterday he had a fall inside the house which was unusual for him. The patient was also slightly confused and not acting like himself and tired time. The patient was brought into the emergency department and evaluated. CT re-demonstrated tumor. There is no acute findings associated with the patient's exam and workup. The patient was admitted to the hospital. Upon admission to the hospital there was discussion about making the patient DNR CC with hospice care which the family is apparently discussing today with palliative team. The patient's family understands the terminal nature of the tumor and is adamant that the patient not receive aggressive measures. Upon examining the patient in the room today the patient is asleep but easily awoken. The patient is apparently at his baseline per the son. The patient's son stated that the patient ate breakfast this morning and was acting like himself. Past Med Surg Social Fam HX - Past Medical History Attestation: Yes The following information was validated with the patient. Source: patient, old records reviewed Medical history: cancer, COPD, hypertension, pulmonary embolus Psychiatric history: no psych history - Past Surgical History Surgical History: other (Brain surgery for debulking of tumor) - Social History Smoking Status: Never smoker Smokeless Tobacco Status: No Alcohol use: none Drug use: none Current living situation: Home, With Family Activity Level: Mostly sedentary - Family History Mother Adopted: No Family Member Ethnicity: Living Status: Cause of : aneurysm Hx Family Cardiac Disorders: Yes (son) Hx Family Respiratory Disorders: No Hx Family Cancer: Yes (sister, aunt, uncle) Hx Family GI Disorders: No Hx Family Genitourinary Disorders: No Hx Family Endocrine Disorder: No Hx Family Musculoskeletal Disorders: No Hx Family Neuromuscular Disorders: No Hx Family Neurologic Disorders: No Hx Family HEENT Disorders: No Hx Family Autoimmune Disorders: No Hx Family Reproductive Disorders: No Hx Family Psychosocial Disorders: No Hx Family Medical Disorders: No Medications and Allergies Allopurinol [Zyloprim 100 MG] 100 mg PO BID 07/18/16 [History] Amlodipine [Norvasc] 2.5 mg PO DAILY 07/18/16 [History] Calcium Carbonate/Vitamin D3 [Calcium 600-Vit D3 200 Tablet] 1 tab PO DAILY 12/27 [History] Isosorbide MONOnitrate (24 HR) [Imdur] 60 mg PO BID 07/18/16 [History] Lisinopril [Zestril] 10 mg PO DAILY 07/18/16 [History] Meclizine HCl [Bonine] 25 mg PO AD PRN 07/18/16 [History] Metoprolol XL (24 HR) Succ [Toprol XL] 25 mg PO DAILY 07/18/16 [History] Nitroglycerin [Nitrostat] 0.4 mg SL AD PRN 07/18/16 [History] OxyCODONE/APAP 5/325 [Percocet 5/325 MG] 1 tab PO Q6HR PRN 07/18/16 [History] Ranolazine [Ranexa] 1,000 mg PO BID 07/18/16 [History] Rivaroxaban [Xarelto] 10 mg PO DAILY 07/18/16 [History] Simvastatin [Zocor] 20 mg PO DAILY 07/18/16 [History] Dexamethasone [Decadron] 4 mg PO DAILY 07/19/16 [History] Docusate [Colace] 100 mg PO BID 07/19/16 [History] HYDROcodone/Acet 5/325 mg [[place] 5-325 mg] 1 tab PO Q6H PRN 07/19/16 [History] Magic Mouthwash [Magic Mouthwash BLM] 10 ml PO TID PRN 07/19/16 [History] Methylphenidate HCl [Ritalin] 5 mg PO DAILY 07/19/16 [History] Allergies meloxicam Allergy (Verified 05/28/16 10:05) See Comments patient unsure of reaction All Systems: A 10-system review of systems was performed and is negative for pertinent findings except as documented above in the HPI. Review of Systems: Patient denies any complaints at this time. - Constitutional Constitutional ROS IM: malaise, weakness Physical Examination - Vital Signs Vital Signs: Initial Vital Signs Temp Pulse Resp BP Pulse Ox 97.5 F L 68 16 144/90 94 L 07/18/16 17:15 07/18/16 17:15 07/18/16 17:15 07/18/16 17:15 07/18/16 17:15 - Constitutional General appearance: comfortable - Neurologic Detailed motor examination: full strength in all major muscle groups Motor examination - right side: 4/5: deltoids, biceps, triceps, wrist flexion, wrist extension, it intern, hip flexors, tibialis Anterior, quadriceps, toe extension (EHL), plantarflexion Motor examination - left side: 4/5: deltoids, biceps, triceps, wrist flexion, wrist extension, hip flexors, it intern, quadriceps, tibialis Anterior, toe extension (EHL), plantarflexion Detailed sensory examination: intact Mental Status Examination: awake, oriented to person, oriented to place, follows commands appropriately, answers questions appropriately, no aphasia, no aproxia, drowsy Cranial nerve examination: PERRL, EOMI, no facial asymmetry is present, no dysarthria, hearing is intact symmetrically, soft palate elevates bilaterally upon phonation, flexes SCM and trapezius muscles symmetrically with full power, no atrophy or facial fasiculations present Cerebellar examination: no dysmetria Results - Laboratory Findings CBC and BMP: 07/19/16 01:17 07/19/16 01:17 Abnormal lab findings: Abnormal lab results WBC 14.9 K/mcL (4.3-11.1) H 07/19/16 01:17 Neutrophils # 12.7 K/mcL (1.6-8.9) H 07/19/16 01:17 PT 14.6 Seconds (9.4-12.1) H 07/18/16 20:44 Sodium 133 mEq/L (136-145) L 07/19/16 01:17 Potassium 4.9 mEq/L (3.5-4.5) H 07/19/16 01:17 Carbon Dioxide 18 mEq/L (19-29) L 07/19/16 01:17 BUN/Creatinine Ratio 35 (6-26) H 07/19/16 01:17 Glucose 69 mg/dL (70-99) L 07/19/16 01:17 POC Glucose 93 (58-89) H 07/18/16 17:24 Calculated Osmolality 279 (280-300) L 07/19/16 01:17 Calcium 8.3 mg/dL (8.6-10.8) L 07/19/16 01:17 Total Bilirubin 1.7 mg/dL (0.2-1.2) H 07/18/16 20:44 Albumin 3.1 g/dL (3.5-5.0) L 07/18/16 20:44 Albumin/Globulin Ratio 1.0 (1.1-2.2) L 07/18/16 20:44 Urine Clarity Cloudy (Clear) A 07/18/16 18:52 Urine Protein 30 mg/dL (Neg-Trace) H 07/18/16 18:52 Urine Blood Moderate (Negative) H 07/18/16 18:52 Urine Microscopic RBC 30-50 per hpf (0-3) H 07/18/16 18:52 Urine Microscopic WBC 3-5 per hpf (0-3) H 07/18/16 18:52 Ur Squamous Epith Cells Many per lpf (None-Few) H 07/18/16 18:52 Ur Renal Epithelial Cell Moderate per hpf (None-Few) H 07/18/16 18:52 Urine Opiates Screen Positive ng/mL (Termqm=623) H 07/18/16 18:55 - Attending Attestation I examined this patient and my medical decision-making was reviewed with the Resident Physician. I agree with the documented findings, disposition and treatment plan as described except to the extent set forth below. Consult Discharge Plan - Plan Referrals: James Velásquez, [Primary Care Provider] -
--- NOTE | 2016-07-19 10:19 | Palliative - Consult Note ---
Date of Encounter: 07/19/16 Time of Encounter: 10:00 - Assessment and Plan (1) Altered mental status Current Visit: Yes Status: Acute Assessment and plan: In all likelihood this is related back to his brain cancer, adequate team is working up other possibilities at this time. Qualifiers: Altered mental status type: unspecified Qualified Code(s): R41.82 - Altered mental status, unspecified (2) Counseling regarding goals of care Current Visit: Yes Status: Acute Assessment and plan: CODE STATUS is currently DNR CCA, DNI. Patient's family would like to have the patient evaluated by PT OT and this will be accomplished either later today or tomorrow. Then make a decision as to what they wish to do. (3) Fall Current Visit: Yes Status: Acute Assessment and plan: CT does raise the possibility of a small brain contusion, this may be a counter coup blow from a fall. But more likely is related back to the glioblastoma multiform A. Qualifiers: Encounter type: initial encounter Qualified Code(s): W19.XXXA - Unspecified fall, initial encounter (4) Glioblastoma Current Visit: No Status: Chronic Assessment and plan: Patient has been through very aggressive care for the glioblastoma. There is no further aggressive care available for him. The patient opts for hospice which is entirely reasonable. This should be his terminal diagnosis. Palliative-CN HPI - Data of Consult Patient: new to practice Requesting Physician: Abdelrahman Apple MD Primary Care Provider: James Velásquez - Consult Narrative Palliative Care/Comfort Measures: Palliative care Reason for consult: Goals of care History of present illness: Mr. Schmidt is a 80 year old male History of glioblastoma multiform that is not amenable for any further aggressive care. Patient has gone through radiation, surgery, and chemotherapy and [facility] does not feel is anything further. I further discussed the case with local oncology at the [facility] and Dr. Sim Malhotra Loop with the patient's oncologist at this time stated there was nothing further to be offered as well. She has been having increasing falls recently and yesterday was also having changes in personality. Patient has no complaints of at this time and is much more awake and much more himself today than he was yesterday. Family states that physical therapy evaluation had been ordered approximately 2 weeks ago but they were not able to make the appointment and they are still wondering about the possibility of physical therapy at this point in time. Please see the assessment and plan. At this time the patient has no difficulty breathing and no difficulty with anywhere. CC: Abdelrahman Apple MD Falls, altered mental status Past Med Surg Social Fam HX - Past Medical History Medical history: cancer, COPD, hypertension, pulmonary embolus Psychiatric history: no psych history - Past Surgical History Surgical History: other (Brain surgery for debulking of tumor) - Social History Smoking Status: Never smoker Smokeless Tobacco Status: No Alcohol use: none Drug use: none - Family History Mother Adopted: No Family Member Ethnicity: Living Status: Cause of : aneurysm Hx Family Cardiac Disorders: Yes (son) Hx Family Respiratory Disorders: No Hx Family Cancer: Yes (sister, aunt, uncle) Hx Family GI Disorders: No Hx Family Genitourinary Disorders: No Hx Family Endocrine Disorder: No Hx Family Musculoskeletal Disorders: No Hx Family Neuromuscular Disorders: No Hx Family Neurologic Disorders: No Hx Family HEENT Disorders: No Hx Family Autoimmune Disorders: No Hx Family Reproductive Disorders: No Hx Family Psychosocial Disorders: No Hx Family Medical Disorders: No Medications and Allergies Allopurinol [Zyloprim 100 MG] 100 mg PO BID 07/18/16 [History] Amlodipine [Norvasc] 2.5 mg PO DAILY 07/18/16 [History] Calcium Carbonate/Vitamin D3 [Calcium 600-Vit D3 200 Tablet] 1 tab PO DAILY 12/27 [History] Isosorbide MONOnitrate (24 HR) [Imdur] 60 mg PO BID 07/18/16 [History] Lisinopril [Zestril] 10 mg PO DAILY 07/18/16 [History] Meclizine HCl [Bonine] 25 mg PO AD PRN 07/18/16 [History] Metoprolol XL (24 HR) Succ [Toprol XL] 25 mg PO DAILY 07/18/16 [History] Nitroglycerin [Nitrostat] 0.4 mg SL AD PRN 07/18/16 [History] OxyCODONE/APAP 5/325 [Percocet 5/325 MG] 1 tab PO Q6HR PRN 07/18/16 [History] Ranolazine [Ranexa] 1,000 mg PO BID 07/18/16 [History] Rivaroxaban [Xarelto] 10 mg PO DAILY 07/18/16 [History] Simvastatin [Zocor] 20 mg PO DAILY 07/18/16 [History] Dexamethasone [Decadron] 4 mg PO DAILY 07/19/16 [History] Docusate [Colace] 100 mg PO BID 07/19/16 [History] HYDROcodone/Acet 5/325 mg [[place] 5-325 mg] 1 tab PO Q6H PRN 07/19/16 [History] Magic Mouthwash [Magic Mouthwash BLM] 10 ml PO TID PRN 07/19/16 [History] Methylphenidate HCl [Ritalin] 5 mg PO DAILY 07/19/16 [History] Allergies meloxicam Allergy (Verified 05/28/16 10:05) See Comments patient unsure of reaction ROS unobtainable: due to mental status Palliative Care-Exam - Constitutional Vitals: Temp Pulse Resp BP Pulse Ox 97.8 F 53 18 162/78 93 L 07/19/16 09:03 07/19/16 09:03 07/19/16 09:03 07/19/16 09:03 07/19/16 09:03 General appearance: Present: no acute distress - Head Head Exam: Absent: atraumatic, normal inspection (abrasion on forehead) - Eye Eye exam: Present: normal appearance (does not open to command) - Neck Neck exam: Present: normal inspection - Respiratory Respiratory exam: Present: decreased breath sounds (poor inspiratory effort) - Cardiovascular Cardiovascular exam: Present: RRR - GI/Abdominal Exam GI/Abdominal exam: Present: normal bowel sounds, soft. Absent: tenderness - Extremities Exam Extremities exam: Present: normal inspection. Absent: pedal edema, tenderness - Neurological Exam Neurological exam: Present: altered - Psychiatric Psychiatric exam: Absent: agitated, anxious - Skin Skin exam: Present: dry, warm Internal Medicine - CN: Reslt - Labs CBC & Chem 7: 07/19/16 01:17 07/19/16 01:17 Labs: Short CBC 07/19/16 Range/Units 01:17 WBC 14.9 H (4.3-11.1) K/mcL Hgb 14.7 (12.9-16.9) g/dL Hct 43.1 (37.5-50.1) % Plt Count 154 (140-400) K/mcL Neutrophils # 12.7 H (1.6-8.9) K/mcL BMP 07/19/16 01:17 Sodium 133 L Potassium 4.9 H Chloride 103 Carbon Dioxide 18 L BUN 26 Creatinine 0.75 Glucose 69 L Calcium 8.3 L Cardiac Enzymes 07/19/16 Range/Units 03:37 Troponin I 0.03 (0-0.03) ng/mL - ABG Interpretation ABG results: PT/INR, D-dimer PT 14.6 Seconds (9.4-12.1) H 07/18/16 20:44 Consult Discharge Plan - Plan Referrals: James Velásquez DO [Primary Care Provider] - 07/30/16 9:45 am (Please follow up as schedule..) Palliative Quality Palliative Quality: Screen for Code Status: Yes, Screen for Goals of Care: Yes, Screen for Pain: Yes, If Pain Regimen Started, Initiate Bowel Regimen: NA, Screen for Nausea/Vomitting: Yes
[2016-07-19] MEDS: Ranolazine 500 MG TAB.ER.12H PO SCH (13:12)
[2016-07-19] MEDS: Aspirin Enteric Coated 81 MG Tablet PO SCH (13:13)
[2016-07-19] MEDS: Metoprolol XL (24 HR) Succ 25 MG TAB.ER.24H PO SCH (13:13)
[2016-07-19] MEDS: amLODIPine 5 MG TABLET PO SCH (13:18)
[2016-07-19] MEDS: D5% in 0.45% NACL 1,000 ML IVC SCH (13:19)
--- NOTE | 2016-07-19 16:32 | Internal Med Progress Note ---
<GarciaMariann Nika - Last Filed: 07/19/16 17:09> Date of Encounter: 07/19/16 Time of Encounter: 14:00 - Assessment and plan (1) Altered mental status Current Visit: Yes Status: Acute Assessment and plan: Patient present from home with altered mental status and two falls. Patient hit his head during one of falls yesterday. CT head demonstrated encephalomalacia in left temporal lobe from previous left temporal craniotomy. New ill-defined lesion in left frontal lobe. Patient is known to have Glioblastoma multifome and does have intermittent episodes of altered mentation Mild leukocytosis. Patient may have underlying infection UA negative, TSH and B12 are normal Patient's mental status is improved today Continue decadron daily Palliative team is following Family is interested in hospice at this time Qualifiers: Altered mental status type: unspecified Qualified Code(s): R41.82 - Altered mental status, unspecified (2) Glioblastoma multiforme Current Visit: Yes Status: Acute Assessment and plan: Plan as above (3) Counseling regarding goals of care Current Visit: Yes Status: Acute Assessment and plan: Patient will need PT/OT evaluation in am We appreciate recommendations for rehabilitation (4) Leukocytosis Current Visit: Yes Status: Acute Assessment and plan: Blood cultures, pending Patient does not meet additional SIRS criteria Qualifiers: Leukocytosis type: unspecified Qualified Code(s): D72.829 - Elevated white blood cell count, unspecified (5) Elevated troponin Current Visit: Yes Status: Resolved Assessment and plan: Resolved Troponin trend: 0.05, 0.03, 0.02 (6) COPD (chronic obstructive pulmonary disease) Current Visit: Yes Status: Chronic Assessment and plan: O2 supplementation Patient on no home medications for COPD Qualifiers: Emphysema type: unspecified Qualified Code(s): J43.9 - Emphysema, unspecified (7) DVT prophylaxis Current Visit: Yes Status: Acute Assessment and plan: EPCDs - Time Spent With Patient 25 - 35 minutes (25 minutes including time with patinet and coordinating care) - Subjective Interval history: Patient states that he is feeling better today. Family states that patient is doing better as well. He knows the faces of family members today, while yesterday he did not. Family states that pt's oncologist wishes patient to undergo PT/OT since he had a stroke in March,. PT/OT will need to evaluate patient to determine level of need patient has for rehabilitation. - Constitutional Vitals: Temp Pulse Resp BP Pulse Ox 97.3 F L 57 12 161/84 97 07/19/16 12:58 07/19/16 12:58 07/19/16 12:58 07/19/16 12:58 07/19/16 12:58 General appearance: Present: A&O X 1 (Only oriented to person), disheveled. Absent: answers questions appropriately - Head Head exam: Present: atraumatic, normocephalic - Eye Eye exam: Present: EOMI, PERRL, conjuntiva pink, sclera anicteric - Neck Neck exam general surgery: Present: supple, trachea midline. Absent: lymphadenopathy - Respiratory Respiratory exam: Present: CTAB. Absent: accessory muscle use, rales, rhonchi, wheezes - Cardiovascular Cardiovascular exam: Present: RRR, +S1, +S2. Absent: diastolic murmur, gallop, rubs, systolic murmur - GI/Abdominal GI/Abdominal exam: Present: normal bowel sounds, soft, no peritoneal signs. Absent: distended, tenderness - Additional comments: Theodore in place with blood in urine - Extremities Exam Extremities exam: Present: warm, radial pulses palpable and symetrical. Absent : calf tenderness, cyanotic, pedal edema - Neurological Exam Neurological exam: Present: CN II-XII intact, no focal deficits. Absent: pronater drift, facial droop, speech deficit - Skin Skin exam: Present: dry, intact Internal Medicine: Result - Labs CBC & Chem 7: 07/19/16 01:17 07/19/16 01:17 Labs: Short CBC 07/19/16 Range/Units 01:17 WBC 14.9 H (4.3-11.1) K/mcL Hgb 14.7 (12.9-16.9) g/dL Hct 43.1 (37.5-50.1) % Plt Count 154 (140-400) K/mcL Neutrophils # 12.7 H (1.6-8.9) K/mcL BMP 07/19/16 01:17 Sodium 133 L Potassium 4.9 H Chloride 103 Carbon Dioxide 18 L BUN 26 Creatinine 0.75 Glucose 69 L Calcium 8.3 L Cardiac Enzymes 07/19/16 07/19/16 Range/Units 03:37 10:34 Troponin I 0.03 0.02 (0-0.03) ng/mL - ABG Interpretation ABG results: PT/INR, D-dimer PT 14.6 Seconds (9.4-12.1) H 07/18/16 20:44 - Impressions Head CT 07/18/16 17:43 IMPRESSION: 29 mm area of ill defined low-attenuation in the inferior left frontal lobe. Considerations include nonhemorrhagic contusion, ischemia or underlying mass. Encephalomalacia in the left temporal lobe secondary to previous surgery and/or treatment. RECOMMENDATIONS: MRI is recommended for further characterization D/ / Yong Irizarry MD / Yong Irizarry MD Interpreting Provider: Yong Irizarry MD Cervical Spine CT 07/18/16 17:47 IMPRESSION: No acute abnormality of the cervical spine. Multilevel degenerative disc disease most pronounced at C4-5. D/ / Yong Irizarry MD / Yong Irizarry MD Interpreting Provider: Yong Irizarry MD Chest X-Ray 07/18/16 17:49 IMPRESSION: No acute process. D/ / Stevan Panda MD / Stevan Panda MD Interpreting Provider: Stevan Panda MD Consult Discharge Plan - Plan Referrals: James Velásquez DO [Primary Care Provider] - 07/30/16 9:45 am (Please follow up as schedule..) <Abdelrahman Apple P - Last Filed: 07/19/16 17:37> - Constitutional Vitals: Temp Pulse Resp BP Pulse Ox 98.4 F 57 16 173/96 97 07/19/16 17:00 07/19/16 17:00 07/19/16 17:00 07/19/16 17:00 07/19/16 17:00 - Head Head exam: Present: atraumatic, normocephalic - Eye Eye exam: Present: PERRL, conjuntiva pink, sclera anicteric Pupils: Present: PERRL - Neck Neck exam general surgery: Present: supple, trachea midline. Absent: lymphadenopathy - Respiratory Respiratory exam: Present: CTAB. Absent: accessory muscle use, rales, rhonchi, wheezes - Cardiovascular Cardiovascular exam: Present: RRR, +S1, +S2. Absent: diastolic murmur, gallop, rubs, systolic murmur - GI/Abdominal GI/Abdominal exam: Present: normal bowel sounds, soft, no peritoneal signs. Absent: distended, tenderness - Extremities Exam Extremities exam: Present: warm, radial pulses palpable and symetrical. Absent : calf tenderness, cyanotic, pedal edema - Neurological Exam Neurological exam: Present: CN II-XII intact, oriented X3, no focal deficits. Absent: pronater drift, facial droop, speech deficit - Skin Skin exam: Present: dry, intact Internal Medicine: Result - Labs CBC & Chem 7: 07/19/16 01:17 07/19/16 01:17 Labs: Short CBC 07/19/16 Range/Units 01:17 WBC 14.9 H (4.3-11.1) K/mcL Hgb 14.7 (12.9-16.9) g/dL Hct 43.1 (37.5-50.1) % Plt Count 154 (140-400) K/mcL Neutrophils # 12.7 H (1.6-8.9) K/mcL BMP 07/19/16 01:17 Sodium 133 L Potassium 4.9 H Chloride 103 Carbon Dioxide 18 L BUN 26 Creatinine 0.75 Glucose 69 L Calcium 8.3 L Cardiac Enzymes 07/19/16 07/19/16 Range/Units 03:37 10:34 Troponin I 0.03 0.02 (0-0.03) ng/mL - ABG Interpretation ABG results: PT/INR, D-dimer PT 14.6 Seconds (9.4-12.1) H 07/18/16 20:44 - Attending Attestation I examined this patient and my medical decision-making was reviewed with the APPLICATION CONSULTANT/PA/Advanced Practice Nurse/Resident Physician. I agree with the documented findings, disposition and treatment plan as described except to the extent set forth below. palliative care on board and will follow recommendations.
[2016-07-20] MEDS: D5% in 0.45% NACL 1,000 ML IVC SCH ×2 (02:18→09:55)
[2016-07-20 06:17] LABS: Basophils % 0.2 %; Eosinophils % 0.2 %; Hematocrit 41.8 % (37.5-50.1); Hemoglobin 14.1 g/dL (12.9-16.9); Immature Granulocytes % 2.3 % (0-4); Lymphocytes # 1.1 K/mcL (0.6-4.6); Lymphocytes % 8.5 %; Mean Corpuscular HGB Conc 33.7 g/dL (31.6-35.5); Mean Corpuscular Hemoglobin 31.3 pg (28.0-33.3); Mean Corpuscular Volume 92.9 fL (83.0-100.0); Mean Platelet Volume 10.2 fL (9.4-12.4); Monocytes # 0.8 K/mcL (0.0-1.3); Monocytes % 6.4 %; Neutrophils # 10.5 K/mcL (1.6-8.9); Platelet Count 140 K/mcL (140-400); Red Cell Distribution Width 13.3 % (11.5-14.5); Segmented Neutrophils % 82.4 %
[2016-07-20 06:29] LABS: Alanine Aminotransferase 27 Units/L (0-55); Albumin 2.8 g/dL (3.5-5.0); Albumin/Globulin Ratio 0.9 (1.1-2.2); Alkaline Phosphatase 51 Units/L (38-126); Aspartate Amino Transferase 20 Units/L (5-34); BUN/Creatinine Ratio 24 (6-26); Bilirubin,Total 1.1 mg/dL (0.2-1.2); Blood Urea Nitrogen 19 mg/dL (8-26); Calcium 8.2 mg/dL (8.6-10.8); Carbon Dioxide 22 mEq/L (19-29); Chloride 102 mEq/L (98-109); Glucose 105 mg/dL (70-99); Osmolality,Calculated 277 (280-300); Potassium 4.6 mEq/L (3.5-4.5); Sodium 132 mEq/L (136-145); Total Protein 5.8 g/dL (6.0-8.3); eGFR For African Americans > 60 (> 60); eGFR For Non-African Americans > 60 (> 60)
[2016-07-20] MEDS: Aspirin Enteric Coated 81 MG Tablet PO SCH (08:14)
[2016-07-20] MEDS: Metoprolol XL (24 HR) Succ 25 MG TAB.ER.24H PO SCH (08:15)
[2016-07-20] MEDS: Ranolazine 500 MG TAB.ER.12H PO SCH (08:15)
[2016-07-20] MEDS: amLODIPine 5 MG TABLET PO SCH (08:17)
--- NOTE | 2016-07-20 09:04 | Neurology Progress Note ---
Date of Encounter: 07/20/16 Time of Encounter: 09:02 Assessment and Plan (1) Altered mental status Current Visit: Yes Status: Resolved Patient back at his baseline per son. Patient will likely participate in hospice. Discussion with patient, family and myself with the decision to perform no further testing or neurologic evaluation. We will sign off the patient at this time. We follow as needed. We appreciate the consult and participation patient's care. Qualifiers: Altered mental status type: unspecified Qualified Code(s): R41.82 - Altered mental status, unspecified (2) Hypersomnolence Current Visit: No Status: Acute (3) Glioblastoma Current Visit: No Status: Chronic Subjective Principal diagnosis: AMS Interval history: Patient sitting up and awake this AM. Patient remains DNR-CCA at this time. Son states that patient is back at baseline. Continues to not want any further testing. Objective - Constitutional Vitals: Temp Pulse Resp BP Pulse Ox 97.7 F 57 14 183/65 97 07/20/16 06:51 07/20/16 06:51 07/20/16 06:51 07/20/16 06:51 07/20/16 08:22 General appearance: Present: A&O X 2, pleasant, no acute distress - Neurological Exam Sensorimotor examination: Present: intact Motor Examination: Present: full strength in all major muscle groups Motor examination - right side: 4/5: deltoids, biceps, triceps, wrist flexion, wrist extension, marble supervisor, hip flexors, tibialis Anterior, quadriceps, toe extension (EHL), plantarflexion Motor examination - left side: 4/5: deltoids, biceps, triceps, wrist flexion, wrist extension, hip flexors, marble supervisor, quadriceps, tibialis Anterior, toe extension (EHL), plantarflexion Sensation intact: Present: intact Reflexes: Biceps: 2+, Patella: 2+ Mental Status Examination: Present: awake, oriented to person, oriented to place , follows commands appropriately, answers questions appropriately, no aphasia, no aproxia, drowsy Cranial nerve examination: Present: PERRL, EOMI, no facial asymmetry is present , no dysarthria, hearing is intact symmetrically, soft palate elevates bilaterally upon phonation, flexes SCM and trapezius muscles symmetrically with full power, no atrophy or facial fasiculations present Cerebellar examination: Present: no dysmetria Results - Laboratory Findings CBC and BMP: 07/20/16 06:06 07/20/16 06:06 Abnormal lab findings: Abnormal lab results WBC 12.8 K/mcL (4.3-11.1) H 07/20/16 06:06 Neutrophils # 10.5 K/mcL (1.6-8.9) H 07/20/16 06:06 PT 14.6 Seconds (9.4-12.1) H 07/18/16 20:44 Sodium 132 mEq/L (136-145) L 07/20/16 06:06 Potassium 4.6 mEq/L (3.5-4.5) H 07/20/16 06:06 Glucose 105 mg/dL (70-99) H 07/20/16 06:06 POC Glucose 93 (58-89) H 07/18/16 17:24 Calculated Osmolality 277 (280-300) L 07/20/16 06:06 Calcium 8.2 mg/dL (8.6-10.8) L 07/20/16 06:06 Serum Total Protein 5.8 g/dL (6.0-8.3) L 07/20/16 06:06 Albumin 2.8 g/dL (3.5-5.0) L 07/20/16 06:06 Albumin/Globulin Ratio 0.9 (1.1-2.2) L 07/20/16 06:06 Urine Clarity Cloudy (Clear) A 07/18/16 18:52 Urine Protein 30 mg/dL (Neg-Trace) H 07/18/16 18:52 Urine Blood Moderate (Negative) H 07/18/16 18:52 Urine Microscopic RBC 30-50 per hpf (0-3) H 07/18/16 18:52 Urine Microscopic WBC 3-5 per hpf (0-3) H 07/18/16 18:52 Ur Squamous Epith Cells Many per lpf (None-Few) H 07/18/16 18:52 Ur Renal Epithelial Cell Moderate per hpf (None-Few) H 07/18/16 18:52 Urine Opiates Screen Positive ng/mL (Cxpmhe=676) H 07/18/16 18:55 Consult Discharge Plan - Plan Referrals: James Velásquez DO [Primary Care Provider] - 07/30/16 9:45 am (Please follow up as schedule..) - Attending Attestation I examined this patient and my medical decision-making was reviewed with the Resident Physician. I agree with the documented findings, disposition and treatment plan as described except to the extent set forth below.
--- NOTE | 2016-07-20 11:35 | Discharge Summary ---
Addendum entered and electronically signed by Mariann Garcia DO 15:48: Patient's family has changed mind about taking patient home on home health. I have just been informed that they are requesting transfer of patient to [facility]. school social worker has informed me that patient may have placement at [facility]. Patient's discharge will therefore be contingent upon placement in [facility]. Original Note: <Mariann Garcia - Last Filed: 07/20/16 13:00> Date of Encounter: 07/20/16 Time of Encounter: 09:00 - Discharge Diagnosis (1) Altered mental status Priority: Primary Status: Resolved Qualifiers: Altered mental status type: unspecified Qualified Code(s): R41.82 - Altered mental status, unspecified (2) Glioblastoma multiforme Priority: Secondary Status: Chronic (3) Counseling regarding goals of care Priority: Secondary Status: Acute (4) Leukocytosis Priority: Secondary Status: Acute Qualifiers: Leukocytosis type: unspecified Qualified Code(s): D72.829 - Elevated white blood cell count, unspecified (5) Elevated troponin Priority: Secondary Status: Resolved (6) COPD (chronic obstructive pulmonary disease) Priority: Secondary Status: Chronic Qualifiers: Emphysema type: unspecified Qualified Code(s): J43.9 - Emphysema, unspecified (7) DVT prophylaxis Priority: Secondary Status: Acute - Discharge Medications Home Medications: Allopurinol [Zyloprim 100 MG] 100 mg PO BID 07/18/16 [History] Amlodipine [Norvasc] 2.5 mg PO DAILY 07/18/16 [History] Calcium Carbonate/Vitamin D3 [Calcium 600-Vit D3 200 Tablet] 1 tab PO DAILY 12/27 [History] Isosorbide MONOnitrate (24 HR) [Imdur] 60 mg PO DAILY 07/18/16 [History] Lisinopril [Zestril] 10 mg PO DAILY 07/18/16 [History] Meclizine HCl [Bonine] 25 mg PO AD PRN 07/18/16 [History] Metoprolol XL (24 HR) Succ [Toprol XL] 25 mg PO DAILY 07/18/16 [History] Nitroglycerin [Nitrostat] 0.4 mg SL AD PRN 07/18/16 [History] OxyCODONE/APAP 5/325 [Percocet 5/325 MG] 1 tab PO Q6HR PRN 07/18/16 [History] Ranolazine [Ranexa] 1,000 mg PO BID 07/18/16 [History] Rivaroxaban [Xarelto] 10 mg PO DAILY 07/18/16 [History] Simvastatin [Zocor] 20 mg PO DAILY 07/18/16 [History] Dexamethasone [Decadron] 4 mg PO DAILY 07/19/16 [History] Docusate [Colace] 100 mg PO BID 07/19/16 [History] HYDROcodone/Acet 5/325 mg [[place] 5-325 mg] 1 tab PO Q6H PRN 07/19/16 [History] Magic Mouthwash [Magic Mouthwash BLM] 10 ml PO TID PRN 07/19/16 [History] Methylphenidate HCl [Ritalin] 5 mg PO DAILY 07/19/16 [History] Allergies/Adverse Reactions: Allergies meloxicam Allergy (Verified 05/28/16 10:05) See Comments patient unsure of reaction Date of admission: 07/19/16 00:25 Primary care physician: James Velásquez Consults: 07/19/16 03:28 Consult to Physical Therapy [CONS] Routine Comment: Evaluate, develop and implement POC 07/19/16 12:53 Consult to Occupational Therapy [CONS] Stat Comment: Evaluate, develop and implement POC Consult to Physical Therapy [CONS] Stat Comment: Evaluate, develop and implement POC Discharging clinician: Abdelrahman Apple Anticipated date of discharge: 07/20/16 - Patient Status Disposition: Home Health Service Condition: Fair Overall status at discharge: patient is not back to baseline (We do not anticipate full recovery due to prognosis of Glioblastoma multiforme.) - Discharge Instructions Instructions: Chronic Obstructive Pulmonary Disease (DC), Chronic Hypertension (DC), Leukocytosis (DC) Follow Up With: James Velásquez DO [Primary Care Provider] - 07/30/16 9:45 am (Please follow up as schedule..) - Diet and Activity Activity: as per physical therapy Diet: advance to your usual diet Hospital course: Mr. Schmidt is a 80 year old male with known history of Glioblastoma multiforme who presented to [facility] on July 18, 2016 for altered mental status with two falls. During one fall, he reportedly hit his head. Patient's CT head demonstrated encephalomalacia involving the left temporal pole secondary to previous surgery. Within the inferior aspect of the left frontal lobe there is a 29mm ill defined area of low attenuation that was not present on prior exam. This imaging was concerning for nonhemorrhagic contusion, ischemia, or underlying mass. Patient was admitted for further evaluation. His family has made the decision to cease any further intervention or testing. During this hospital stay, patient's mentation is improved per family. He has had evaluation by PT/OT who recommended ECF for rehabilitation. Family elects to take the patient home at this time. Patient will be referred to home hospice for further treatment. - Time Spent with Patient Total time spent providing and/or coordinating discharge services: Greater than 30 minutes (35 minutes including time with patient and coordinating care) - Constitutional Vitals: Temp Pulse Resp BP Pulse Ox 97.7 F 57 14 183/65 97 07/20/16 06:51 07/20/16 06:51 07/20/16 06:51 07/20/16 06:51 07/20/16 08:22 General appearance: Present: A&O X 1 (Only oriented to person), disheveled. Absent: answers questions appropriately - Head Head exam: Present: atraumatic, normocephalic - Eye Eye exam: Present: PERRL, conjuntiva pink, sclera anicteric Pupils: Present: PERRL - Neck Neck exam general surgery: Present: supple, trachea midline. Absent: lymphadenopathy - Respiratory Respiratory exam: Present: CTAB. Absent: accessory muscle use, rales, rhonchi, wheezes - Cardiovascular Cardiovascular exam: Present: RRR, +S1, +S2. Absent: diastolic murmur, gallop, rubs, systolic murmur - GI/Abdominal GI/Abdominal exam: Present: normal bowel sounds, soft, no peritoneal signs. Absent: distended, tenderness - Additional comments: Theodore with bright red blood present - Extremities Exam Extremities exam: Present: warm, radial pulses palpable and symetrical. Absent : calf tenderness, cyanotic, pedal edema - Neurological Exam Neurological exam: Present: CN II-XII intact, oriented X3, no focal deficits. Absent: pronater drift, facial droop, speech deficit - Skin Skin exam: Present: dry, intact - Other Additional findings: Head CT 07/18/16 17:43 IMPRESSION: 29 mm area of ill defined low-attenuation in the inferior left frontal lobe. Considerations include nonhemorrhagic contusion, ischemia or underlying mass. Encephalomalacia in the left temporal lobe secondary to previous surgery and/or treatment. RECOMMENDATIONS: MRI is recommended for further characterization D/ / Yong Irizarry MD / Yong Irizarry MD Interpreting Provider: Yong Irizarry MD Cervical Spine CT 07/18/16 17:47 IMPRESSION: No acute abnormality of the cervical spine. Multilevel degenerative disc disease most pronounced at C4-5. D/ / Yong Irizarry MD / Yong Irizarry MD Interpreting Provider: Yong Irizarry MD Chest X-Ray 07/18/16 17:49 IMPRESSION: No acute process. D/ / Stevan Panda MD / Stevan Panda MD Interpreting Provider: Stevan Panda MD <Abdelrahman Apple P - Last Filed: 07/20/16 18:19> Procedures/tests Complete & Pending: Procedures Performed prior 72 hours Category Date Time Status ECG 12 lead ECG [ECG] Routine Y 07/20/16 10:06 Completed Date of admission: 07/19/16 00:25 Primary care physician: James Velásquez Consults: 07/19/16 03:28 Consult to Physical Therapy [CONS] Routine Comment: Evaluate, develop and implement POC 07/19/16 12:53 Consult to Occupational Therapy [CONS] Stat Comment: Evaluate, develop and implement POC Consult to Physical Therapy [CONS] Stat Comment: Evaluate, develop and implement POC Hospital course: Mr. Schmitd is a 80 year old male - Time Spent with Patient Total time spent providing and/or coordinating discharge services: - Constitutional Vitals: Temp Pulse Resp BP Pulse Ox 97.7 F 55 14 117/74 95 07/20/16 14:40 07/20/16 14:40 07/20/16 14:40 07/20/16 14:40 07/20/16 14:40 - Attending Attestation I examined this patient and my medical decision-making was reviewed with the AIRWAY TRAFFIC CONTROLLER/PA/Advanced Practice Nurse/Resident Physician. I agree with the documented findings, disposition and treatment plan as described except to the extent set forth below.
--- NOTE | 2016-07-20 11:48 | Palliative Progress Note ---
Date of Encounter: 07/20/16 Time of Encounter: 11:35 - Assessment and plan (1) Counseling regarding goals of care Current Visit: Yes Status: Acute Assessment and plan: Discussed goals of care with the patient's son-Dany, and spouse-Chanelle. Family continues to contemplate decision regarding home health vs. Hospice. Per family request, I spoke with [facility], and they will cover short term physical therapy while enrolled in hospice as the patient's condition warrants. Physical therapy would be for short term (2-3 weeks only), and family verbalizes understanding. This was verified with Helene London on at 11:10. Per spouse's request, Referral made to [facility] with a goal of meeting at the patient's home on Saturday07/23/16 (referral made to Leobardo Reynolds at 12:03). Patient's family developed a good rapport with Dr. Gibbs and requested that he follow Mr. Schmidt in hospice care. Palliative care will continue to follow. (2) Glioblastoma multiforme Current Visit: Yes Status: Chronic Assessment and plan: Oncology following. Mr. Mc has exhausted interventions for his cancer. Supportive therapy in place. Consider hospice as an option. (3) Altered mental status Current Visit: Yes Status: Resolved Qualifiers: Altered mental status type: unspecified Qualified Code(s): R41.82 - Altered mental status, unspecified - Time Spent With Patient Total time spent is greater than 50% in coordination of care (as documented) at patient's floor/unit and/or counseling patient: - Subjective Interval history: Mr. Schmidt is lying in bed with family at bedside (son-Dany). He denies pain or shortness of breath. Mr. Schmidt continues to have memory deficits according to his son. He was able to participate in physical therapy. - Constitutional Vitals: Abnormal lab results WBC 12.8 K/mcL (4.3-11.1) H 07/20/16 06:06 Neutrophils # 10.5 K/mcL (1.6-8.9) H 07/20/16 06:06 PT 14.6 Seconds (9.4-12.1) H 07/18/16 20:44 Sodium 132 mEq/L (136-145) L 07/20/16 06:06 Potassium 4.6 mEq/L (3.5-4.5) H 07/20/16 06:06 Glucose 105 mg/dL (70-99) H 07/20/16 06:06 POC Glucose 93 (58-89) H 07/18/16 17:24 Calculated Osmolality 277 (280-300) L 07/20/16 06:06 Calcium 8.2 mg/dL (8.6-10.8) L 07/20/16 06:06 Serum Total Protein 5.8 g/dL (6.0-8.3) L 07/20/16 06:06 Albumin 2.8 g/dL (3.5-5.0) L 07/20/16 06:06 Albumin/Globulin Ratio 0.9 (1.1-2.2) L 07/20/16 06:06 Urine Clarity Cloudy (Clear) A 07/18/16 18:52 Urine Protein 30 mg/dL (Neg-Trace) H 07/18/16 18:52 Urine Blood Moderate (Negative) H 07/18/16 18:52 Urine Microscopic RBC 30-50 per hpf (0-3) H 07/18/16 18:52 Urine Microscopic WBC 3-5 per hpf (0-3) H 07/18/16 18:52 Ur Squamous Epith Cells Many per lpf (None-Few) H 07/18/16 18:52 Ur Renal Epithelial Cell Moderate per hpf (None-Few) H 07/18/16 18:52 Urine Opiates Screen Positive ng/mL (Dkotly=162) H 07/18/16 18:55 General appearance: Present: cooperative, no acute distress - Respiratory Respiratory exam: Present: CTAB. Absent: accessory muscle use, respiratory distress, rhonchi, wheezes, tachypnea - GI/Abdominal GI/Abdominal exam: Present: normal bowel sounds, soft. Absent: tenderness - Extremities Exam Extremities exam: Present: normal inspection - Neurological Exam Neurological exam: Present: alert (memory deficits ), strengths equal and symetr throughout - Psychiatric Psychiatric exam: Absent: agitated, anxious - Skin Skin exam: Present: dry, warm Palliative Quality Palliative Quality: Screen for Code Status: Yes, Screen for Goals of Care: Yes, Screen for Pain: Yes, If Pain Regimen Started, Initiate Bowel Regimen: NA, Screen for Nausea/Vomitting: Yes - Labs CBC & Chem 7: 07/20/16 06:06 07/20/16 06:06 Labs: Laboratory Results - last 24 hr 07/20/16 07/20/16 06:06 06:06 WBC 12.8 H RBC 4.50 Hgb 14.1 Hct 41.8 MCV 92.9 MCH 31.3 MCHC 33.7 RDW 13.3 Plt Count 140 MPV 10.2 Immature Gran % 2.3 Seg Neutrophils % 82.4 Lymphocytes % 8.5 Monocytes % 6.4 Eosinophils % 0.2 Basophils % 0.2 Neutrophils # 10.5 H Lymphocytes # 1.1 Monocytes # 0.8 Eosinophils # 0.0 Basophils # 0.0 Sodium 132 L Potassium 4.6 H Chloride 102 Carbon Dioxide 22 BUN 19 Creatinine 0.78 Est GFR ( Amer) > 60 Est GFR (Non-Af Amer) > 60 BUN/Creatinine Ratio 24 Glucose 105 H Calculated Osmolality 277 L Calcium 8.2 L Total Bilirubin 1.1 AST 20 ALT 27 Alkaline Phosphatase 51 Serum Total Protein 5.8 L Albumin 2.8 L Globulin 3.0 Albumin/Globulin Ratio 0.9 L - ABG Interpretation ABG results: PT/INR, D-dimer PT 14.6 Seconds (9.4-12.1) H 07/18/16 20:44 Consult Discharge Plan - Plan Instructions: Chronic Obstructive Pulmonary Disease (DC), Chronic Hypertension (DC), Leukocytosis (DC) Referrals: James Velásquez DO [Primary Care Provider] - 07/30/16 9:45 am (Please follow up as schedule..)
[2016-07-20] MEDS: Isosorbide MONOnitrate (24 HR) 60 MG TAB.ER.24H PO SCH (12:09)
--- NOTE | 2016-07-20 13:14 | Physician Discharge Referral ---
<JoseMariannsalas Maher - Last Filed: 07/20/16 13:12> Home Health/Hosp Referral Info Transfer to: Home Health ([facility]) Attending Provider: Dr. Abdelrahman Apple MD Provider in Charge Post Discharge: PCP - Diagnosis (1) Altered mental status Priority: Primary Status: Resolved (2) Glioblastoma multiforme Priority: Primary Status: Chronic (3) Counseling regarding goals of care Priority: Secondary Status: Acute (4) Leukocytosis Priority: Secondary Status: Acute (5) Elevated troponin Priority: Secondary Status: Resolved (6) COPD (chronic obstructive pulmonary disease) Priority: Secondary Status: Chronic (7) DVT prophylaxis Priority: Secondary Status: Acute - Respiratory Orders Smoking Cessation: Smoking cessation has been advised. For more information, call the [place] Tobacco Quit Line at 5-890-VNIA-NOW. - Diet/Nutrition Diet/Nutrition Orders: Regular - Activity Activity Orders: Ambulate (with 2 person assist for safey) - Services Needed Following services are medically necessary services: Nursing, Home Health Aide, Physical Therapy, Occupational Therapy - Transfer Medications Home Medications: Allopurinol [Zyloprim 100 MG] 100 mg PO BID 07/18/16 [History] Amlodipine [Norvasc] 2.5 mg PO DAILY 07/18/16 [History] Calcium Carbonate/Vitamin D3 [Calcium 600-Vit D3 200 Tablet] 1 tab PO DAILY 12/27 [History] Isosorbide MONOnitrate (24 HR) [Imdur] 60 mg PO DAILY 07/18/16 [History] Lisinopril [Zestril] 10 mg PO DAILY 07/18/16 [History] Meclizine HCl [Bonine] 25 mg PO AD PRN 07/18/16 [History] Metoprolol XL (24 HR) Succ [Toprol XL] 25 mg PO DAILY 07/18/16 [History] Nitroglycerin [Nitrostat] 0.4 mg SL AD PRN 07/18/16 [History] OxyCODONE/APAP 5/325 [Percocet 5/325 MG] 1 tab PO Q6HR PRN 07/18/16 [History] Ranolazine [Ranexa] 1,000 mg PO BID 07/18/16 [History] Rivaroxaban [Xarelto] 10 mg PO DAILY 07/18/16 [History] Simvastatin [Zocor] 20 mg PO DAILY 07/18/16 [History] Dexamethasone [Decadron] 4 mg PO DAILY 07/19/16 [History] Docusate [Colace] 100 mg PO BID 07/19/16 [History] HYDROcodone/Acet 5/325 mg [[place] 5-325 mg] 1 tab PO Q6H PRN 07/19/16 [History] Magic Mouthwash [Magic Mouthwash BLM] 10 ml PO TID PRN 07/19/16 [History] Methylphenidate HCl [Ritalin] 5 mg PO DAILY 07/19/16 [History] Allergies/Adverse Reactions: Allergies meloxicam Allergy (Verified 05/28/16 10:05) See Comments patient unsure of reaction Certification: Further, I certify that my clinical findings support that this patient is homebound (i.e. absences from home require considerable and taxing effort and are for medical reasons or sikh services or infrequently or short duration when for other reasons) because: Homebound Reason: Leaving home requires considerable and taxing effort due to condition Attestation: My signature below is to certify that this patient is under my care and that I, or nurse practitioner, or a physician's school psychologist assistant working with me, has a face-to -face encounter with this patient. <Abdelrahman Apple P - Last Filed: 07/20/16 18:20> - Respiratory Orders Smoking Cessation: Smoking cessation has been advised. For more information, call the [place] Tobacco Quit Line at 9-787-XJLP-NOW. Certification: Further, I certify that my clinical findings support that this patient is homebound (i.e. absences from home require considerable and taxing effort and are for medical reasons or sikh services or infrequently or short duration when for other reasons) because: Attestation: My signature below is to certify that this patient is under my care and that I, or nurse practitioner, or a physician's school psychologist assistant working with me, has a face-to -face encounter with this patient.
--- NOTE | 2016-07-20 18:08 | Electrocardiograph Report ---
[place] [id number] Test Date: 2016-07-20 Pat Name: Raymundo Schmidt Department: 112 Room: 2A13 Gender: M Lining Stamper: : [id number] Requested By: Abdelrahman Apple Order Number: [id number] Reading MD: Ana Manuel Measurements Intervals [place] Rate: 55 P: 25 LA: 171 QRS: -61 QRSD: 104 T: 52 QT: 463 QTc: 451 Interpretive Statements SINUS BRADYCARDIA WITH SINUS ARRHYTHMIA MARKED LEFT AXIS DEVIATION Electronically Signed On 07-20-2016 18:06:24 EST by Ana Manuel
[2016-07-21] MEDS: Isosorbide MONOnitrate (24 HR) 60 MG TAB.ER.24H PO SCH (07:33)
[2016-07-21] MEDS: Ranolazine 500 MG TAB.ER.12H PO SCH (07:33)
[2016-07-21] MEDS: Metoprolol XL (24 HR) Succ 25 MG TAB.ER.24H PO SCH (07:33)
[2016-07-21] MEDS: amLODIPine 5 MG TABLET PO SCH (07:34)
[2016-07-21] MEDS: Aspirin Enteric Coated 81 MG Tablet PO SCH (07:34)
--- NOTE | 2016-07-21 08:35 | Physician Discharge Referral ---
<Mariann Garcia - Last Filed: 07/21/16 08:33> [facility] Referral Info Transfer To: [facility] Provider in Charge: Dr. Abdelrahman Apple MD Provider in Charge after Transfer: PCP Institutional Level of Care: Skilled - Diagnosis (1) Altered mental status Priority: Primary Status: Resolved (2) Glioblastoma multiforme Priority: Primary Status: Chronic (3) Counseling regarding goals of care Priority: Secondary Status: Acute (4) Leukocytosis Priority: Secondary Status: Acute (5) Elevated troponin Priority: Secondary Status: Resolved (6) COPD (chronic obstructive pulmonary disease) Priority: Secondary Status: Chronic (7) DVT prophylaxis Priority: Secondary Status: Acute Expected Duration of Placement: 30 days Prognosis: Poor Aware of Diagnosis: Family Aware of Prognosis: Family - Transfer Medications Home Medications: Allopurinol [Zyloprim 100 MG] 100 mg PO BID 07/18/16 [History] Amlodipine [Norvasc] 2.5 mg PO DAILY 07/18/16 [History] Calcium Carbonate/Vitamin D3 [Calcium 600-Vit D3 200 Tablet] 1 tab PO DAILY 12/27 [History] Isosorbide MONOnitrate (24 HR) [Imdur] 60 mg PO DAILY 07/18/16 [History] Lisinopril [Zestril] 10 mg PO DAILY 07/18/16 [History] Meclizine HCl [Bonine] 25 mg PO AD PRN 07/18/16 [History] Metoprolol XL (24 HR) Succ [Toprol Xl] 25 mg PO DAILY 07/18/16 [History] Nitroglycerin [Nitrostat] 0.4 mg SL AD PRN 07/18/16 [History] OxyCODONE/APAP 5/325 [Percocet 5/325 MG] 1 tab PO Q6HR PRN 07/18/16 [History] Ranolazine [Ranexa] 1,000 mg PO BID 07/18/16 [History] Rivaroxaban [Xarelto] 10 mg PO DAILY 07/18/16 [History] Simvastatin [Zocor] 20 mg PO DAILY 07/18/16 [History] Dexamethasone [Decadron] 4 mg PO DAILY 07/19/16 [History] Docusate [Colace] 100 mg PO BID 07/19/16 [History] HYDROcodone/Acet 5/325 mg [Armbrust 5-325 mg] 1 tab PO Q6H PRN 07/19/16 [History] Magic Mouthwash [Magic Mouthwash BLM] 10 ml PO TID PRN 07/19/16 [History] Methylphenidate HCl [Ritalin] 5 mg PO DAILY 07/19/16 [History] Naloxone [Narcan] 0.4 mg IVP Q2MIN PRN #0 inj 07/21/16 [Rx] Allergies/Adverse Reactions: Allergies meloxicam Allergy (Verified 05/28/16 10:05) See Comments patient unsure of reaction - Respiratory Orders Smoking Cessation: Smoking cessation has been advised. For more information, call the [employer] Quit Line at 1-562-BSJENOW. - Ancillary Orders May use pressure relief devices daily prn - Advance Directives Living Will: No Power of Manager It Security: No Code Status: DNR-Comfort Care (DNR-comfort care arrest-DNI) - Mobility Orders Ambulate (2 person assist for safety) - Rehabiliation Orders Rehab Potential: Poor Rehab Orders: Evaluation for Physical Therapy, Evaluation for Occupational Therapy - Diet Orders Regular CERTIFICATION: I certify that the transfer of the above named patient to an Extended Care Facility is necessary for the continuing treatment of the diagnosis listed. The above information is true and accurate reflection of patient's current condition. Confidential - Redisclosure prohibited without a patient's written consent. <Abdelrahman Apple P - Last Filed: 07/21/16 16:36> - Respiratory Orders Smoking Cessation: Smoking cessation has been advised. For more information, call the [employer] Quit Line at 1-368-JGHN-RFX. CERTIFICATION: I certify that the transfer of the above named patient to an Extended Care Facility is necessary for the continuing treatment of the diagnosis listed. The above information is true and accurate reflection of patient's current condition. Confidential - Redisclosure prohibited without a patient's written consent.
--- NOTE | 2016-07-21 09:26 | Palliative Progress Note ---
Date of Encounter: 07/21/16 Time of Encounter: 09:24 - Assessment and plan (1) Counseling regarding goals of care Current Visit: Yes Status: Acute Assessment and plan: Mr. Schmidt is awaiting placement at [facility], social worker school following. Plan for hospice evaluation on Saturday. (2) Glioblastoma multiforme Current Visit: Yes Status: Chronic Assessment and plan: Oncology following. Mr. Mc has exhausted interventions for his cancer. Supportive therapy in place. Consider hospice as an option upon completion of rehab. (3) Altered mental status Current Visit: Yes Status: Resolved Assessment and plan: Mr. Schmidt continues to get agitated periodically. Most likely the result of his GBM. Supportive measures. Family at bedside. Qualifiers: Altered mental status type: unspecified Qualified Code(s): R41.82 - Altered mental status, unspecified - Time Spent With Patient Total time spent is greater than 50% in coordination of care (as documented) at patient's floor/unit and/or counseling patient: - Subjective Interval history: Mr. Schmidt is lying in bed with family at bedside (-Chanelle). Family stayed with patient throughout the night as he became restless and agitated periodically. - Constitutional Vitals: Abnormal lab results WBC 12.8 K/mcL (4.3-11.1) H 07/20/16 06:06 Neutrophils # 10.5 K/mcL (1.6-8.9) H 07/20/16 06:06 PT 14.6 Seconds (9.4-12.1) H 07/18/16 20:44 Sodium 132 mEq/L (136-145) L 07/20/16 06:06 Potassium 4.6 mEq/L (3.5-4.5) H 07/20/16 06:06 Glucose 105 mg/dL (70-99) H 07/20/16 06:06 Calculated Osmolality 277 (280-300) L 07/20/16 06:06 Calcium 8.2 mg/dL (8.6-10.8) L 07/20/16 06:06 Serum Total Protein 5.8 g/dL (6.0-8.3) L 07/20/16 06:06 Albumin 2.8 g/dL (3.5-5.0) L 07/20/16 06:06 Albumin/Globulin Ratio 0.9 (1.1-2.2) L 07/20/16 06:06 Urine Clarity Cloudy (Clear) A 07/18/16 18:52 Urine Protein 30 mg/dL (Neg-Trace) H 07/18/16 18:52 Urine Blood Moderate (Negative) H 07/18/16 18:52 Urine Microscopic RBC 30-50 per hpf (0-3) H 07/18/16 18:52 Urine Microscopic WBC 3-5 per hpf (0-3) H 07/18/16 18:52 Ur Squamous Epith Cells Many per lpf (None-Few) H 07/18/16 18:52 Ur Renal Epithelial Cell Moderate per hpf (None-Few) H 07/18/16 18:52 Urine Opiates Screen Positive ng/mL ([id number]=428) H 07/18/16 18:55 General appearance: Present: no acute distress - Eye Eye exam: Present: EOMI - ENT ENT exam: Present: mucous membranes moist - Respiratory Respiratory exam: Absent: accessory muscle use, prolonged expiratory phase, respiratory distress - Cardiovascular Cardiovascular exam: Present: RRR - Extremities Exam Extremities exam: Present: normal inspection - Neurological Exam Neurological exam: Present: alert (pleasantly confused ) - Psychiatric Psychiatric exam: Absent: agitated, anxious - Skin Skin exam: Present: dry, warm Palliative Quality Palliative Quality: Screen for Code Status: Yes, Screen for Goals of Care: Yes, Screen for Pain: Yes, If Pain Regimen Started, Initiate Bowel Regimen: NA, Screen for Nausea/Vomitting: Yes - Labs CBC & Chem 7: 07/20/16 06:06 07/20/16 06:06 Labs: Laboratory Results - last 24 hr 07/20/16 06:53 POC Glucose 89 - ABG Interpretation ABG results: PT/INR, D-dimer PT 14.6 Seconds (9.4-12.1) H 07/18/16 20:44 Consult Discharge Plan - Plan Instructions: Chronic Obstructive Pulmonary Disease (DC), Chronic Hypertension (DC), Leukocytosis (DC) Referrals: James Velásquez DO [Primary Care Provider] - 07/30/16 9:45 am (Please follow up as schedule..)
--- NOTE | 2016-07-21 16:39 | Internal Med Progress Note ---
Date of Encounter: 07/21/16 Time of Encounter: 16:37 - Assessment and plan (1) Altered mental status Current Visit: Yes Status: Resolved Assessment and plan: Patient present from home with altered mental status and two falls. Patient hit his head during one of falls yesterday. CT head demonstrated encephalomalacia in left temporal lobe from previous left temporal craniotomy. New ill-defined lesion in left frontal lobe. Patient is known to have Glioblastoma multifome and does have intermittent episodes of altered mentation Mild leukocytosis. Patient may have underlying infection UA negative, TSH and B12 are normal Patient's mental status is improved today Continue decadron daily Palliative team is following Family is interested in hospice at this time 07/21/2016 no new complaints continue same treatment medically clear. awaiting placement @[facility] seen by palliative care possible hospice evaluation on Saturday. Qualifiers: Altered mental status type: unspecified Qualified Code(s): R41.82 - Altered mental status, unspecified (2) Glioblastoma multiforme Current Visit: Yes Status: Chronic Assessment and plan: Plan as above (3) COPD (chronic obstructive pulmonary disease) Current Visit: Yes Status: Chronic Assessment and plan: O2 supplementation Patient on no home medications for COPD Qualifiers: Emphysema type: unspecified Qualified Code(s): J43.9 - Emphysema, unspecified (4) DVT prophylaxis Current Visit: Yes Status: Acute Assessment and plan: EPCDs - Subjective Interval history: seen and examined patient is comfortable and does not have any complaints. - Constitutional Vitals: Temp Pulse Resp BP Pulse Ox 97.4 F L 59 14 122/72 94 L 07/21/16 15:29 07/21/16 15:29 07/21/16 15:29 07/21/16 15:29 07/21/16 15:29 General appearance: Present: A&O X 1 (Only oriented to person), disheveled. Absent: answers questions appropriately - Head Head exam: Present: atraumatic, normocephalic - Eye Eye exam: Present: PERRL, conjuntiva pink, sclera anicteric Pupils: Present: PERRL - Neck Neck exam general surgery: Present: supple, trachea midline. Absent: lymphadenopathy - Respiratory Respiratory exam: Present: CTAB. Absent: accessory muscle use, rales, rhonchi, wheezes - Cardiovascular Cardiovascular exam: Present: RRR, +S1, +S2. Absent: diastolic murmur, gallop, rubs, systolic murmur - GI/Abdominal GI/Abdominal exam: Present: normal bowel sounds, soft, no peritoneal signs. Absent: distended, tenderness - Extremities Exam Extremities exam: Present: warm, radial pulses palpable and symetrical. Absent : calf tenderness, cyanotic, pedal edema - Neurological Exam Neurological exam: Present: CN II-XII intact, oriented X3, no focal deficits. Absent: pronater drift, facial droop, speech deficit - Skin Skin exam: Present: dry, intact Internal Medicine: Result - Labs CBC & Chem 7: 07/20/16 06:06 07/20/16 06:06 - ABG Interpretation ABG results: PT/INR, D-dimer PT 14.6 Seconds (9.4-12.1) H 07/18/16 20:44 Consult Discharge Plan - Plan Instructions: Chronic Obstructive Pulmonary Disease (DC), Chronic Hypertension (DC), Leukocytosis (DC) Referrals: James Velásquez DO [Primary Care Provider] - 07/30/16 9:45 am (Please follow up as schedule..)
[2016-07-22] MEDS: Aspirin Enteric Coated 81 MG Tablet PO SCH (07:33)
[2016-07-22] MEDS: Ranolazine 500 MG TAB.ER.12H PO SCH (07:33)
[2016-07-22] MEDS: Isosorbide MONOnitrate (24 HR) 60 MG TAB.ER.24H PO SCH (07:33)
[2016-07-22] MEDS: amLODIPine 5 MG TABLET PO SCH (07:33)
[2016-07-22] MEDS: Metoprolol XL (24 HR) Succ 25 MG TAB.ER.24H PO SCH (07:39)
--- NOTE | 2016-07-22 09:48 | Palliative Progress Note ---
Date of Encounter: 07/22/16 Time of Encounter: 09:46 - Assessment and plan (1) Counseling regarding goals of care Current Visit: Yes Status: Acute Assessment and plan: Mr. Schmidt is awaiting placement at [facility], transition social worker following. Plan for hospice evaluation on Saturday. (2) Glioblastoma multiforme Current Visit: Yes Status: Chronic Assessment and plan: Oncology following. Mr. Mc has exhausted interventions for his cancer. Supportive therapy in place. Consider hospice as an option upon completion of rehab. (3) Altered mental status Current Visit: Yes Status: Resolved Assessment and plan: Mr. Schmidt continues to get agitated periodically. Most likely the result of his GBM. Supportive measures. Family at bedside. Recommend minimizing sleep disturbance with vital signs and assessments at night. Discussed with hospitalist. Qualifiers: Altered mental status type: unspecified Qualified Code(s): R41.82 - Altered mental status, unspecified - Time Spent With Patient Total time spent is greater than 50% in coordination of care (as documented) at patient's floor/unit and/or counseling patient: - Subjective Interval history: Mr. Schmidt is lying in bed with family at bedside (son-Dany). Family stayed with patient throughout the night as he became restless and agitated periodically. Mr. Schmidt is now able to sit on the side of the bed and use the bedside commode. His only complaint is the sleep disturbance throughout the night. - Constitutional Vitals: Abnormal lab results WBC 12.8 K/mcL (4.3-11.1) H 07/20/16 06:06 Neutrophils # 10.5 K/mcL (1.6-8.9) H 07/20/16 06:06 PT 14.6 Seconds (9.4-12.1) H 07/18/16 20:44 Sodium 132 mEq/L (136-145) L 07/20/16 06:06 Potassium 4.6 mEq/L (3.5-4.5) H 07/20/16 06:06 Glucose 105 mg/dL (70-99) H 07/20/16 06:06 Calculated Osmolality 277 (280-300) L 07/20/16 06:06 Calcium 8.2 mg/dL (8.6-10.8) L 07/20/16 06:06 Serum Total Protein 5.8 g/dL (6.0-8.3) L 07/20/16 06:06 Albumin 2.8 g/dL (3.5-5.0) L 07/20/16 06:06 Albumin/Globulin Ratio 0.9 (1.1-2.2) L 07/20/16 06:06 Urine Clarity Cloudy (Clear) A 07/18/16 18:52 Urine Protein 30 mg/dL (Neg-Trace) H 07/18/16 18:52 Urine Blood Moderate (Negative) H 07/18/16 18:52 Urine Microscopic RBC 30-50 per hpf (0-3) H 07/18/16 18:52 Urine Microscopic WBC 3-5 per hpf (0-3) H 07/18/16 18:52 Ur Squamous Epith Cells Many per lpf (None-Few) H 07/18/16 18:52 Ur Renal Epithelial Cell Moderate per hpf (None-Few) H 07/18/16 18:52 Urine Opiates Screen Positive ng/mL (Saezqt=354) H 07/18/16 18:55 General appearance: Present: cooperative, no acute distress - Eye Eye exam: Present: conjunctival injection - ENT ENT exam: Present: mucous membranes moist - Respiratory Respiratory exam: Absent: accessory muscle use, prolonged expiratory phase, respiratory distress - Cardiovascular Cardiovascular exam: Present: RRR - GI/Abdominal GI/Abdominal exam: Present: soft. Absent: tenderness - Extremities Exam Extremities exam: Present: normal inspection - Neurological Exam Neurological exam: Present: alert (pleasantly confused. ), no focal deficits, strengths equal and symetr throughout - Psychiatric Psychiatric exam: Present: normal affect, normal mood. Absent: agitated, anxious - Skin Skin exam: Present: dry, warm Palliative Quality Palliative Quality: Screen for Code Status: Yes, Screen for Goals of Care: Yes, Screen for Pain: Yes, If Pain Regimen Started, Initiate Bowel Regimen: NA, Screen for Nausea/Vomitting: Yes - Labs CBC & Chem 7: 07/20/16 06:06 07/20/16 06:06 - ABG Interpretation ABG results: PT/INR, D-dimer PT 14.6 Seconds (9.4-12.1) H 07/18/16 20:44 Consult Discharge Plan - Plan Instructions: Chronic Obstructive Pulmonary Disease (DC), Chronic Hypertension (DC), Leukocytosis (DC) Referrals: James Velásquez DO [Primary Care Provider] - 07/30/16 9:45 am (Please follow up as schedule..)
--- NOTE | 2016-07-22 13:34 | Internal Med Progress Note ---
Date of Encounter: 07/22/16 Time of Encounter: 13:32 - Assessment and plan (1) Altered mental status Current Visit: Yes Status: Resolved Assessment and plan: Patient present from home with altered mental status and two falls. Patient hit his head during one of falls yesterday. CT head demonstrated encephalomalacia in left temporal lobe from previous left temporal craniotomy. New ill-defined lesion in left frontal lobe. Patient is known to have Glioblastoma multifome and does have intermittent episodes of altered mentation Mild leukocytosis. Patient may have underlying infection UA negative, TSH and B12 are normal Patient's mental status is improved today Continue decadron daily Palliative team is following Family is interested in hospice at this time 07/21/2016 no new complaints continue same treatment medically clear. awaiting placement @[facility] seen by palliative care possible hospice evaluation on Saturday. 07/22/2016 no new complaints medically clear Neurology signed off awaiting placement/ hospice evaluation Qualifiers: Altered mental status type: unspecified Qualified Code(s): R41.82 - Altered mental status, unspecified (2) Glioblastoma multiforme Current Visit: Yes Status: Chronic Assessment and plan: Plan as above (3) COPD (chronic obstructive pulmonary disease) Current Visit: Yes Status: Chronic Assessment and plan: O2 supplementation Patient on no home medications for COPD Qualifiers: Emphysema type: unspecified Qualified Code(s): J43.9 - Emphysema, unspecified (4) DVT prophylaxis Current Visit: Yes Status: Acute Assessment and plan: EPCDs - Subjective Interval history: seen and examined patient is comfortable and does not have any complaints. 07/22/2016 seen and examined no new complaints family at bedside. awaiting for placement. - Constitutional Vitals: Temp Pulse Resp BP Pulse Ox 97.5 F L 62 16 151/82 95 07/22/16 12:16 07/22/16 12:16 07/22/16 12:16 07/22/16 12:16 07/22/16 12:16 General appearance: Present: A&O X 1 (Only oriented to person), disheveled. Absent: answers questions appropriately - Head Head exam: Present: atraumatic, normocephalic - Eye Eye exam: Present: PERRL, conjuntiva pink, sclera anicteric Pupils: Present: PERRL - Neck Neck exam general surgery: Present: supple, trachea midline. Absent: lymphadenopathy - Respiratory Respiratory exam: Present: CTAB. Absent: accessory muscle use, rales, rhonchi, wheezes - Cardiovascular Cardiovascular exam: Present: RRR, +S1, +S2. Absent: diastolic murmur, gallop, rubs, systolic murmur - GI/Abdominal GI/Abdominal exam: Present: normal bowel sounds, soft, no peritoneal signs. Absent: distended, tenderness - Extremities Exam Extremities exam: Present: warm, radial pulses palpable and symetrical. Absent : calf tenderness, cyanotic, pedal edema - Neurological Exam Neurological exam: Present: CN II-XII intact, oriented X3, no focal deficits. Absent: pronater drift, facial droop, speech deficit - Skin Skin exam: Present: dry, intact Internal Medicine: Result - Labs CBC & Chem 7: 07/20/16 06:06 07/20/16 06:06 - ABG Interpretation ABG results: PT/INR, D-dimer PT 14.6 Seconds (9.4-12.1) H 07/18/16 20:44 Consult Discharge Plan - Plan Instructions: Chronic Obstructive Pulmonary Disease (DC), Chronic Hypertension (DC), Leukocytosis (DC) Referrals: James Velásquez DO [Primary Care Provider] - 07/30/16 9:45 am (Please follow up as schedule..)
[2016-07-23] MEDS: amLODIPine 5 MG TABLET PO SCH (08:02)
[2016-07-23] MEDS: Aspirin Enteric Coated 81 MG Tablet PO SCH (08:02)
[2016-07-23] MEDS: Metoprolol XL (24 HR) Succ 25 MG TAB.ER.24H PO SCH (08:03)
[2016-07-23] MEDS: Isosorbide MONOnitrate (24 HR) 60 MG TAB.ER.24H PO SCH (08:03)
[2016-07-23] MEDS: Ranolazine 500 MG TAB.ER.12H PO SCH (08:03)
--- NOTE | 2016-07-23 09:18 | Palliative Progress Note ---
Date of Encounter: 07/23/16 Time of Encounter: 09:16 - Assessment and plan (1) Altered mental status Current Visit: Yes Status: Resolved Assessment and plan: This appears to have cleared. Then some periods of occasional agitation. Qualifiers: Altered mental status type: unspecified Qualified Code(s): R41.82 - Altered mental status, unspecified (2) Counseling regarding goals of care Current Visit: Yes Status: Acute Assessment and plan: Patient is DNR [facility] DNI, will probably go out for rehabilitation today and then transition to hospice after rehabilitation. A meeting with family this morning. (3) Fall Current Visit: Yes Status: Acute Assessment and plan: This has resolved patient will be getting rehabilitation to strengthen him. Qualifiers: Encounter type: initial encounter Qualified Code(s): W19.XXXA - Unspecified fall, initial encounter (4) Glioblastoma Current Visit: No Status: Chronic Assessment and plan: Further therapy is available for this unfortunate gentleman. - Time Spent With Patient Total time spent is greater than 50% in coordination of care (as documented) at patient's floor/unit and/or counseling patient: - Subjective Interval history: The patient is comfortable this morning with no complaints. No morphine or Ativan use last night. Plan for today is discharged to ECF. Family is not fully here yet will meet with a little bit later. - Constitutional Vitals: Abnormal lab results WBC 12.8 K/mcL (4.3-11.1) H 07/20/16 06:06 Neutrophils # 10.5 K/mcL (1.6-8.9) H 07/20/16 06:06 PT 14.6 Seconds (9.4-12.1) H 07/18/16 20:44 Sodium 132 mEq/L (136-145) L 07/20/16 06:06 Potassium 4.6 mEq/L (3.5-4.5) H 07/20/16 06:06 Glucose 105 mg/dL (70-99) H 07/20/16 06:06 Calculated Osmolality 277 (280-300) L 07/20/16 06:06 Calcium 8.2 mg/dL (8.6-10.8) L 07/20/16 06:06 Serum Total Protein 5.8 g/dL (6.0-8.3) L 07/20/16 06:06 Albumin 2.8 g/dL (3.5-5.0) L 07/20/16 06:06 Albumin/Globulin Ratio 0.9 (1.1-2.2) L 07/20/16 06:06 Urine Clarity Cloudy (Clear) A 07/18/16 18:52 Urine Protein 30 mg/dL (Neg-Trace) H 07/18/16 18:52 Urine Blood Moderate (Negative) H 07/18/16 18:52 Urine Microscopic RBC 30-50 per hpf (0-3) H 07/18/16 18:52 Urine Microscopic WBC 3-5 per hpf (0-3) H 07/18/16 18:52 Ur Squamous Epith Cells Many per lpf (None-Few) H 07/18/16 18:52 Ur Renal Epithelial Cell Moderate per hpf (None-Few) H 07/18/16 18:52 Urine Opiates Screen Positive ng/mL ([id number]=603) H 07/18/16 18:55 General appearance: Present: no acute distress - Head Head exam: Present: atraumatic, normal inspection - Eye Eye exam: Present: normal appearance - Respiratory Respiratory exam: Present: CTAB - Cardiovascular Cardiovascular exam: Present: RRR - Extremities Exam Extremities exam: Present: normal inspection. Absent: pedal edema, tenderness - Neurological Exam Neurological exam: Present: alert - Psychiatric Psychiatric exam: Present: normal affect, normal mood. Absent: agitated, anxious - Skin Skin exam: Present: dry, warm Palliative Quality Palliative Quality: Screen for Code Status: Yes, Screen for Goals of Care: Yes, Screen for Pain: Yes, If Pain Regimen Started, Initiate Bowel Regimen: NA, Screen for Nausea/Vomitting: Yes - Labs CBC & Chem 7: 07/20/16 06:06 07/20/16 06:06 - ABG Interpretation ABG results: PT/INR, D-dimer PT 14.6 Seconds (9.4-12.1) H 07/18/16 20:44 Consult Discharge Plan - Plan Instructions: Chronic Obstructive Pulmonary Disease (DC), Chronic Hypertension (DC), Leukocytosis (DC) Referrals: James Velásquez DO [Primary Care Provider] - 07/30/16 9:45 am (Please follow up as schedule..)
[2016-07-23 11:38] VITALS: BP 109/74
== END 2016-07-23 13:03 | disposition home health service (06) | DRG 55 ==
LOC: 2ANU 17:14 → EMEROO 17:14 → 2ANU 22:26
PROVIDERS: ADMIT Internal Medicine; ATTEND Internal Medicine

== ENCOUNTER 2016-08-23 10:24 | Inpatient (IN) ==
[2016-08-23] MEDS ORDERED: Bisacodyl 10 MG RECTAL SUPPOSITORY RC PRN (11:18)
[2016-08-23] MEDS ORDERED: Nitroglycerin 0.4 MG TAB.SUBL SL PRN (11:33)
--- NOTE | 2016-08-23 14:11 | Palliative - Consult Note ---
Date of Encounter: 08/23/16 Time of Encounter: 14:00 - Assessment and Plan (1) Hematuria Current Visit: Yes Status: Acute Assessment and plan: Will attempt to insert 3way catheter and connect to continuous bladder irrigation. He will need sitter temporarily to avoid pulling out of tubes. D/ C Xarelto and ASA and monitor bleeding. (2) Generalized pain Current Visit: Yes Status: Acute Assessment and plan: Percocet PRN, will have Roxanol available if needed. (3) Counseling regarding goals of care Current Visit: No Status: Acute Assessment and plan: Patient was admitted with respite stay, but with the gross hematuria and requirement of continuous bladder irrigation, will meet inpt requirement for general inpt hospice at this time. (4) Glioblastoma multiforme Current Visit: No Status: Chronic Palliative-CN HPI - Data of Consult Consult date: 08/23/16 Requesting Physician: Atif Gibbs MD Primary Care Provider: PCP NO - Consult Narrative History of present illness: Mr. Schmidt is a 80 year old male with a history of glioblastoma, and currently enrolled with [facility] who was admitted to general inpt hospice with hematuria. Patient has been on Xarelto and ASA halfway r/t history of clots and orthopedic surgeries. [facility] reports they have discussed discontinuing this with but she has refused to stop. Theodore catheter was inserted yesterday r/t urinary retention, and pt had bleeding yesterday pm and throughout the night. Irrigation was performed today at the house by hospice nurse. Upon my arrival when he was admitted to floor, catheter is not draining. Multiple attempts to manually irrigated did have some clots returned and madrigal red urine would drain for a bit, then catheter would appear to clot back off. He is confused and restless at this time and trying to pull out catheter. is at bedside. CC: Atif Gibbs MD Past Med Surg Social Fam HX - Past Medical History Medical history: cancer, COPD, hypertension, pulmonary embolus Psychiatric history: no psych history - Past Surgical History Surgical History: other (Brain surgery for debulking of tumor) - Social History Smoking Status: Never smoker Smokeless Tobacco Status: No Alcohol use: none Drug use: none - Family History Mother Adopted: No Family Member Ethnicity: Living Status: Hx Family Cardiac Disorders: Yes (son) Hx Family Respiratory Disorders: No Hx Family Cancer: Yes (sister, aunt, uncle) Hx Family GI Disorders: No Hx Family Endocrine Disorder: No Hx Family Neuromuscular Disorders: No Hx Family Neurologic Disorders: No Hx Family HEENT Disorders: No Hx Family Autoimmune Disorders: No Medications and Allergies Allopurinol [Zyloprim 100 MG] 100 mg PO BID 07/18/16 [History] Amlodipine [Norvasc] 2.5 mg PO DAILY 07/18/16 [History] Calcium Carbonate/Vitamin D3 [Calcium 600-Vit D3 200 Tablet] 1 tab PO DAILY 12/27 [History] Isosorbide MONOnitrate (24 HR) [Imdur] 60 mg PO DAILY 07/18/16 [History] Lisinopril [Zestril] 10 mg PO DAILY 07/18/16 [History] Meclizine HCl [Bonine] 25 mg PO AD PRN 07/18/16 [History] Metoprolol XL (24 HR) Succ [Toprol Xl] 25 mg PO DAILY 07/18/16 [History] Nitroglycerin [Nitrostat] 0.4 mg SL AD PRN 07/18/16 [History] OxyCODONE/APAP 5/325 [Percocet 5/325 MG] 1 tab PO Q6HR PRN 07/18/16 [History] Ranolazine [Ranexa] 1,000 mg PO BID 07/18/16 [History] Rivaroxaban [Xarelto] 10 mg PO DAILY 07/18/16 [History] Simvastatin [Zocor] 20 mg PO DAILY 07/18/16 [History] Dexamethasone [Decadron] 4 mg PO DAILY 07/19/16 [History] Docusate [Colace] 100 mg PO BID 07/19/16 [History] Magic Mouthwash [Magic Mouthwash BLM] 10 ml PO TID PRN 07/19/16 [History] Methylphenidate HCl [Ritalin] 5 mg PO DAILY 07/19/16 [History] Albuterol Neb [Proventil Neb] 2.5 mg IH Q4HR #30 vial.neb 07/30/16 [Rx] Guaifenesin [Mucinex] 1,200 mg PO BID #20 tab.er.12h 07/30/16 [Rx] Allergies meloxicam Allergy (Verified 05/28/16 10:05) See Comments patient unsure of reaction ROS unobtainable: due to mental status Palliative Care-Exam - Constitutional General appearance: Present: mild distress - Head Head Exam: Present: normal inspection, normocephalic - Eye Eye exam: Present: normal appearance, PERRL - Respiratory Respiratory exam: Present: decreased breath sounds, CTAB - Cardiovascular Cardiovascular exam: Present: +S1, +S2 - GI/Abdominal Exam GI/Abdominal exam: Present: normal bowel sounds, soft - Catheter Type: 2-way Urethral Additional comments: Madrigal red urine with clots - Extremities Exam Extremities exam: Present: normal capillary refill Additional comments: Some mottling appearance to lower extremities - Neurological Exam Neurological exam: Present: alert, altered - Skin Skin exam: Present: dry, pallor, warm Consult Discharge Plan - Plan Referrals: NO,PCP [Primary Care Provider] - Palliative Quality Palliative Quality: Screen for Code Status: Yes, Screen for Goals of Care: Yes, Screen for Pain: Yes, If Pain Regimen Started, Initiate Bowel Regimen: Yes, Screen for Nausea/Vomitting: Yes Code Status: 08/23/16 11:18 Resuscitation Status: Active [RES] Routine Comment: Resuscitation Status: DNR-Comfort Care
[2016-08-23] MEDS: *HR* OxyCODONE/APAP 5/325 TABLET PO PRN ×2 (15:00→22:54)
[2016-08-23] MEDS: Ipratropium/Albuterol Neb 3 ML IH SCH ×4 (15:07→23:39)
--- NOTE | 2016-08-23 15:20 | Event Note ---
Date of Encounter: 08/23/16 Time of Encounter: 14:55 Theodore has stopped draining shortly after manual irrigations. Bladder remains distended and pt uncomfortable and restless. Removed old catheter, catheter was only in approximately 3 inches. Attempted 3way cath - 18Fr inserted without difficulty and foul smelling thick bloody urine obtained. Connected to CBI but flow stopped shortly after initiation. Attempted again to manually irrigate and was not successful. Contact Dr. [facility], currently in surgery, who will see pt when available.
[2016-08-23] MEDS ORDERED: *HR* Rivaroxaban 10 MG TABLET PO SCH (17:00)
[2016-08-23] MEDS: Magic Mouthwash 10 ML UD Cup PO SCH (17:03)
[2016-08-23] MEDS: Morphine Oral CONC 5 MG/0.25 ML ORAL.SYG PO PRN (18:43)
[2016-08-24] MEDS: Ipratropium/Albuterol Neb 3 ML IH SCH ×6 (04:23→23:39)
[2016-08-24] MEDS: *HR* LORazepam Oral Conc 2 MG/ML PO PRN ×3 (05:21→21:25)
[2016-08-24] MEDS: Morphine Oral CONC 5 MG/0.25 ML ORAL.SYG PO PRN ×3 (06:17→23:36)
--- NOTE | 2016-08-24 06:46 | Urology - Consult Note ---
Date of Encounter: 08/23/16 Time of Encounter: 20:00 - Assessment and Plan (1) Clot retention of urine Current Visit: Yes Status: Acute Assessment and plan: unknown etiology for gross hematuria but possible cath trauma/pulling at home. unable to confirm. we discussed no intervention bc of his terminal brain cancer but unltimately elected to proceed with larger catheter for palliative reasons which I felt was appropriate. 24 hematuria cath placed. large blood clot returned and urine flowed well after. CBI started. If urine stays clear for a few days, OK to remove hematuria catheter if primary service desires. watch patient carefuly if cath removed as it is possible he could develop recurrent retention/hematuria especially bc I do not know the true etiology of the clot retention. Urology CN:HPI Consult date: 08/23/16 Reason for consult Urology: Gross Hematuria History of present illness: new to the urology service. terminal brain cancer and on hospice. transferred from home with gross hematuria and no UO. unknown if any urology hx. currently a 3 way cath is in place with no output. Past Med Surg Social Fam HX - Past Medical History Medical history: cancer, COPD, hypertension, pulmonary embolus Psychiatric history: no psych history - Past Surgical History Surgical History: other - Social History Smoking Status: Never smoker Smokeless Tobacco Status: No Alcohol use: none Drug use: none - Family History Mother History Unknown: Yes Adopted: No Family Member Ethnicity: Living Status: Hx Family Cardiac Disorders: Yes (son) Hx Family Respiratory Disorders: No Hx Family Cancer: Yes (sister, aunt, uncle) Hx Family GI Disorders: No Hx Family Endocrine Disorder: No Hx Family Neuromuscular Disorders: No Hx Family Neurologic Disorders: No Hx Family HEENT Disorders: No Hx Family Autoimmune Disorders: No Medications and Allergies Allopurinol [Zyloprim 100 MG] 100 mg PO BID 07/18/16 [History] Amlodipine [Norvasc] 2.5 mg PO DAILY 07/18/16 [History] Calcium Carbonate/Vitamin D3 [Calcium 600-Vit D3 200 Tablet] 1 tab PO DAILY 12/27 [History] Isosorbide MONOnitrate (24 HR) [Imdur] 60 mg PO DAILY 07/18/16 [History] Lisinopril [Zestril] 10 mg PO DAILY 07/18/16 [History] Meclizine HCl [Bonine] 25 mg PO AD PRN 07/18/16 [History] Metoprolol XL (24 HR) Succ [Toprol Xl] 25 mg PO DAILY 07/18/16 [History] Nitroglycerin [Nitrostat] 0.4 mg SL AD PRN 07/18/16 [History] OxyCODONE/APAP 5/325 [Percocet 5/325 MG] 1 tab PO Q6HR PRN 07/18/16 [History] Ranolazine [Ranexa] 1,000 mg PO BID 07/18/16 [History] Rivaroxaban [Xarelto] 10 mg PO DAILY 07/18/16 [History] Simvastatin [Zocor] 20 mg PO DAILY 07/18/16 [History] Dexamethasone [Decadron] 4 mg PO DAILY 07/19/16 [History] Docusate [Colace] 100 mg PO BID 07/19/16 [History] Magic Mouthwash [Magic Mouthwash BLM] 10 ml PO TID PRN 07/19/16 [History] Methylphenidate HCl [Ritalin] 5 mg PO DAILY 07/19/16 [History] Albuterol Neb [Proventil Neb] 2.5 mg IH Q4HR #30 vial.neb 07/30/16 [Rx] Guaifenesin [Mucinex] 1,200 mg PO BID #20 tab.er.12h 07/30/16 [Rx] Allergies meloxicam Allergy (Verified 05/28/16 10:05) See Comments patient unsure of reaction Review of Systems ROS unobtainable: due to mental status (states abd hurts. ) Exam Initial Vital Signs Temp Pulse Resp BP Pulse Ox 97.6 F 65 18 132/86 96 08/23/16 14:06 08/23/16 14:06 08/23/16 14:06 08/23/16 14:06 08/23/16 14:06 - General physical appearance Present: moderate distress (continues to grab genitals), chronically ill - ENT Present: normal nares - Neck Present: no masses - Respiratory Present: normal respiratory effort - Cardiovascular Cardiovascular exam IM: RRR - Abdomen Abdomen: Present: soft, tender (suprabpubic tender) - Genitourinary normal penis with no external lesions - Neurologic Present: disoriented, confused - Additional Findings no output from 3 way cath Urology Results - Labs All other labs normal. Consult Discharge Plan - Plan Referrals: NO,PCP [Primary Care Provider] - (Patient is [facility])
[2016-08-24] MEDS: Magic Mouthwash 10 ML UD Cup PO SCH ×4 (07:14→19:33)
[2016-08-24] MEDS ORDERED: Aspirin Enteric Coated 81 MG Tablet PO SCH (09:00)
--- NOTE | 2016-08-24 09:07 | Palliative Progress Note ---
Date of Encounter: 08/24/16 Time of Encounter: 09:00 - Assessment and plan (1) Hematuria Current Visit: Yes Status: Acute Assessment and plan: Greatly appreciate assistance from Dr. Brady last pm. Irrigation has been stopped - urine currently pink tinged and will monitor closely. D/C cath later this weekend if no reoccurrence of bleeding per urology recommendations. (2) Restlessness and agitation Current Visit: Yes Status: Acute Assessment and plan: Continue Lorazepam and Haloperidol as per [facility] plan of care. Received Lorazepam x1 last pm. MOnitor. (3) Generalized pain Current Visit: Yes Status: Acute Assessment and plan: Continue current medications. Utilized Percocet x2 last 24 hours, and Roxanol x2 as well. MOnitor (4) Counseling regarding goals of care Current Visit: No Status: Acute (5) Glioblastoma multiforme Current Visit: No Status: Chronic - Time Spent With Patient Total time spent is greater than 50% in coordination of care (as documented) at patient's floor/unit and/or counseling patient: - Subjective Interval history: Patient resting quietly with sitter at bedside. Awakens easily and drifts back to sleep. Greatly appreciate Dr. Brady with [facility] assistance with large bore cath placement yesterday evening and his consultation has been reviewed. No family present at this time. He appears very comfortable. Sitter states when awake, he does try and grab catheter. - Constitutional General appearance: Present: no acute distress - Respiratory Respiratory exam: Present: decreased breath sounds, CTAB - Cardiovascular Cardiovascular exam: Present: +S1, +S2 - GI/Abdominal GI/Abdominal exam: Present: normal bowel sounds, soft - Additional comments: Theodore with pink tinged urine. - Extremities Exam Extremities exam: Present: normal capillary refill, normal inspection - Neurological Exam Neurological exam: Present: alert Additional comments: Awakens easily, confused. Unable to answer questions. Does follow some simple commands - Skin Skin exam: Present: dry, warm Palliative Quality Palliative Quality: Screen for Code Status: Yes, Screen for Goals of Care: Yes, Screen for Pain: Yes, If Pain Regimen Started, Initiate Bowel Regimen: Yes, Screen for Nausea/Vomitting: Yes Code Status: 08/23/16 11:18 Resuscitation Status: Active [RES] Routine Comment: Resuscitation Status: DNR-Comfort Care Consult Discharge Plan - Plan Referrals: NO,PCP [Primary Care Provider] - (Patient is [facility])
[2016-08-24] MEDS: Ranolazine 500 MG TAB.ER.12H PO SCH (09:21)
[2016-08-24] MEDS: amLODIPine 5 MG TABLET PO SCH (09:21)
[2016-08-24] MEDS: Fluconazole 100 MG TABLET PO SCH (09:21)
[2016-08-24] MEDS: Isosorbide MONOnitrate (24 HR) 60 MG TAB.ER.24H PO SCH (09:22)
[2016-08-24] MEDS: Metoprolol XL (24 HR) Succ 25 MG TAB.ER.24H PO SCH (09:22)
[2016-08-24] MEDS: Methylphenidate HCl 5 MG TABLET PO SCH ×2 (09:24→09:47)
--- NOTE | 2016-08-24 16:04 | Event Note ---
Date of Encounter: 08/24/16 Time of Encounter: 16:00 Patient has became less responsive throughout the day. Color pale/slightly dusky. Hypotensive. Hospice nurse at bedside along with pt primary nurse. Pt' s called and updated with clinical changes. I informed her that he may be dying. She was extremely upset over telephone and She will be coming in.
[2016-08-24] MEDS: Haloperidol Oral Conc 10 MG/5 ML UDC PO PRN (18:32)
[2016-08-25] MEDS: Morphine Oral CONC 5 MG/0.25 ML ORAL.SYG PO PRN ×6 (02:11→19:47)
[2016-08-25] MEDS: Ipratropium/Albuterol Neb 3 ML IH SCH ×6 (04:13→23:46)
[2016-08-25] MEDS: Haloperidol Oral Conc 10 MG/5 ML UDC PO PRN ×3 (04:38→14:18)
[2016-08-25] MEDS: Magic Mouthwash 10 ML UD Cup PO SCH ×2 (08:06→11:15)
[2016-08-25] MEDS: amLODIPine 5 MG TABLET PO SCH (08:45)
[2016-08-25] MEDS: Metoprolol XL (24 HR) Succ 25 MG TAB.ER.24H PO SCH (08:46)
[2016-08-25] MEDS: Fluconazole 100 MG TABLET PO SCH (09:04)
[2016-08-25] MEDS: Ranolazine 500 MG TAB.ER.12H PO SCH (09:05)
[2016-08-25] MEDS: Isosorbide MONOnitrate (24 HR) 60 MG TAB.ER.24H PO SCH (09:05)
[2016-08-25] MEDS: Methylphenidate HCl 5 MG TABLET PO SCH (09:05)
--- NOTE | 2016-08-25 10:12 | Palliative Progress Note ---
Date of Encounter: 08/25/16 Time of Encounter: 10:10 - Assessment and plan (1) Hematuria Current Visit: Yes Status: Acute Assessment and plan: Resolving - urine appears with old blood, no clots (2) Restlessness and agitation Current Visit: Yes Status: Acute Assessment and plan: Will continue Ativan and Haldol PRN. Has utilized Ativan x3 as well as Haldol x3 last 24 hours. Monitor (3) Generalized pain Current Visit: Yes Status: Acute Assessment and plan: Has utilized Roxanol x5 last 24 hours. He does appear restless and has facial grimacing at times. Discussed with son and will increase to 10mg and try and make him more comfortable. (4) Counseling regarding goals of care Current Visit: No Status: Acute Assessment and plan: not currently present. Discussed clinical events over the last 24 hours with son. He is aware that he may not survive long. States his mother is struggling. Will move to larger room to accommodate family/friends. Leave cath in place at this time and continue to monitor bleeding. Reassess tomorrow and continue symptom management (5) Glioblastoma multiforme Current Visit: No Status: Chronic - Time Spent With Patient Total time spent is greater than 50% in coordination of care (as documented) at patient's floor/unit and/or counseling patient: 25 - 35 minutes - Subjective Interval history: Patient minimally responsive, does open eyes occasionally and moves arms. Son and granddaughter at bedside. He remains hypotensive and hypoxic. Not alert enough to take po at this time. - Constitutional General appearance: Present: no acute distress - Respiratory Additional comments: Rhonchi noted to rt anterior lung harp - Cardiovascular Cardiovascular exam: Present: tachycardia - GI/Abdominal GI/Abdominal exam: Present: hypoactive bowel sounds, soft - Additional comments: Theodore with blood tinged urine, no clots noted and draining well - Extremities Exam Additional comments: Right hand dusky and cool to touch. Bilateral feet with faint mottling and coolness - Neurological Exam Neurological exam: Present: altered Additional comments: Opens eyes with assessment, does not verbalize or follow commands. Restless at times - Skin Skin exam: Present: dry, pallor Palliative Quality Palliative Quality: Screen for Code Status: Yes, Screen for Goals of Care: Yes, Screen for Pain: Yes, If Pain Regimen Started, Initiate Bowel Regimen: Yes, Screen for Nausea/Vomitting: Yes Code Status: 08/23/16 11:18 Resuscitation Status: Active [RES] Routine Comment: Resuscitation Status: DNR-Comfort Care Consult Discharge Plan - Plan Referrals: NO,PCP [Primary Care Provider] - (Patient is [facility])
[2016-08-25] MEDS: *HR* LORazepam Oral Conc 2 MG/ML PO PRN ×2 (13:01→17:31)
[2016-08-26] MEDS: Morphine Oral CONC 5 MG/0.25 ML ORAL.SYG PO PRN ×2 (03:29→21:37)
[2016-08-26] MEDS: Ipratropium/Albuterol Neb 3 ML IH SCH ×6 (04:20→23:43)
[2016-08-26 11:40] VITALS: BP 70/49
[2016-08-26] MEDS: *HR* LORazepam Oral Conc 2 MG/ML PO PRN (15:14)
[2016-08-26] MEDS ORDERED: Atropine Sulfate 1% 40 DROP/2 ML BOTTLE SL PRN (18:06)
[2016-08-27] MEDS: Morphine Oral CONC 5 MG/0.25 ML ORAL.SYG PO PRN (01:43)
[2016-08-27] MEDS: Ipratropium/Albuterol Neb 3 ML IH SCH (04:26)
--- NOTE | 2016-08-27 07:02 | Event Note ---
Date of Encounter: 08/27/16 Time of Encounter: 07:00 The patient was seen on 2016 in rounding note. Over there was no documentation on that day. The patient was very hypotensive and occasionally restless with grimaces. Urine output continued to be very minimal but still was some blood. It appeared comfortable, it appeared that he would pass very soon. The patient was seen by Teressa Donnelly advanced nurse practitioner, and the above is the essence of her signout which will now be her note for Saturday.
--- NOTE | 2016-08-27 07:06 | Death Note ---
Discharge Sum: Summary - Date and Time Date of admission: 08/23/16 12:36 Date of : 08/27/16 Time of : 02:50 - Summary Details: The patient came into the hospital initially for respite stay, but was noted to have severe hematuria requiring a tenuous bladder irrigation. He was also clear that the patient was doing poorly and was expected to pass soon. Switched over to general inpatient care due to the hematuria and the requirement for continuous bladder irrigation. The patient to be very hypotensive and passed quietly and comfortably this morning and 0250 hours. Family was not at bedside, but they were notified. Patient of glioblastoma multiform E, with a complication of acute hematuria. Morbidities COPD hypertension and a history of pulmonary embolus. The patient was never a smoker - Additional Data Confirmation of as documented by pronouncing clinician: no pulse, no respirations, no heart sounds Family: contacted Attending/PCP notified?: Yes Attending physician: Atif Gibbs MD Was code activated?: No Autopsy requested?: No warehouse examiner notified?: No Organ bank notified?: Yes Advance directives: Yes Hospice patient?: Yes Discharge Sum: Diag - PCOD Probable Cause of : Respiratory arrest Discharge Sum: Prov - Provider Primary care physician: James Velásquez Consults: 08/23/16 11:18 Consult to Palliative Care [CONS] Routine Comment: Consulting Provider: Palliative Care Laura 08/23/16 15:13 Consult to Urology [CONS] Stat Consulting Provider: Urology Laura Reason for Consult: gross hematuria Time Notified: 15:10 Call Completed: Yes
--- NOTE | 2016-08-27 07:12 | Pallative History & Physical ---
Date of Encounter: 08/27/16 Time of Encounter: 07:10 Assessment and Plan (1) Glioblastoma Status: Chronic (2) Hematuria Status: Acute Internal Medicine - H&P: HPI Admitted From: Direct Admit Plans for Post Hospital Care: at Medical Facility History of present illness: Mr. Schmidt is a 80 year old male With a history of glioblastoma multiform , patient was admitted for respite stay , but the hematuria that was noted in the need for continuous bladder irrigation the patient was changed up to general inpatient. Patient was not seen personally by me but was seen by my advanced nurse practitioner Teressa Lopez. Please see her alliative consultation, this will serve as th&P Past Med Surg Social Fam HX - Past Medical History Medical history: cancer, COPD, hypertension, pulmonary embolus Psychiatric history: no psych history - Past Surgical History Surgical History: other - Social History Smoking Status: Never smoker Smokeless Tobacco Status: No Alcohol use: none Drug use: none - Family History Mother History Unknown: Yes Adopted: No Family Member Ethnicity: Living Status: Hx Family Cardiac Disorders: Yes (son) Hx Family Respiratory Disorders: No Hx Family Cancer: Yes (sister, aunt, uncle) Hx Family GI Disorders: No Hx Family Endocrine Disorder: No Hx Family Neuromuscular Disorders: No Hx Family Neurologic Disorders: No Hx Family HEENT Disorders: No Hx Family Autoimmune Disorders: No Internal Medicine - H&P: Meds Allopurinol [Zyloprim 100 MG] 100 mg PO BID 07/18/16 [History] Amlodipine [Norvasc] 2.5 mg PO DAILY 07/18/16 [History] Calcium Carbonate/Vitamin D3 [Calcium 600-Vit D3 200 Tablet] 1 tab PO DAILY 12/27 [History] Isosorbide MONOnitrate (24 HR) [Imdur] 60 mg PO DAILY 07/18/16 [History] Lisinopril [Zestril] 10 mg PO DAILY 07/18/16 [History] Meclizine HCl [Bonine] 25 mg PO AD PRN 07/18/16 [History] Metoprolol XL (24 HR) Succ [Toprol Xl] 25 mg PO DAILY 07/18/16 [History] Nitroglycerin [Nitrostat] 0.4 mg SL AD PRN 07/18/16 [History] OxyCODONE/APAP 5/325 [Percocet 5/325 MG] 1 tab PO Q6HR PRN 07/18/16 [History] Ranolazine [Ranexa] 1,000 mg PO BID 07/18/16 [History] Rivaroxaban [Xarelto] 10 mg PO DAILY 07/18/16 [History] Simvastatin [Zocor] 20 mg PO DAILY 07/18/16 [History] Dexamethasone [Decadron] 4 mg PO DAILY 07/19/16 [History] Docusate [Colace] 100 mg PO BID 07/19/16 [History] Magic Mouthwash [Magic Mouthwash BLM] 10 ml PO TID PRN 07/19/16 [History] Methylphenidate HCl [Ritalin] 5 mg PO DAILY 07/19/16 [History] Albuterol Neb [Proventil Neb] 2.5 mg IH Q4HR #30 vial.neb 07/30/16 [Rx] Guaifenesin [Mucinex] 1,200 mg PO BID #20 tab.er.12h 07/30/16 [Rx] Allergies meloxicam Allergy (Verified 05/28/16 10:05) See Comments patient unsure of reaction ROS unobtainable: other Palliative Care-Exam - Constitutional Vitals: Temp Pulse Resp BP Pulse Ox 99.2 F 108 25 70/49 88 08/26/16 11:38 08/26/16 11:38 08/26/16 23:43 08/26/16 11:38 08/26/16 23:43 General appearance: Present: mild distress (Please see the history and physical as done by Teressa Donnelly advanced nurse practitioner patient was not seen personally by myself.), no acute distress Palliative Quality Palliative Quality: Screen for Code Status: Yes, Screen for Goals of Care: Yes, Screen for Pain: Yes, If Pain Regimen Started, Initiate Bowel Regimen: Yes, Screen for Nausea/Vomitting: Yes Code Status: 08/23/16 11:18 Resuscitation Status: Active [RES] Routine Comment: Resuscitation Status: DNR-Comfort Care
== END 2016-08-27 02:50 | disposition expired | DRG 55 ==
LOC: 2ANU 12:36
PROVIDERS: ADMIT Family Medicine Hospice and Palliative Medicine; ATTEND Family Medicine Hospice and Palliative Medicine